=== PATIENT | female | born 1985 | race Caucasian/White ===

== ENCOUNTER 2017-07-15 11:24 | Inpatient (IN) ==
--- NOTE | 2017-07-15 12:14 | Emergency Department Note ---
Disposition Clinical Impression: Suicidal ideation, Evaluation by psychiatric service required Depression Qualifiers: Depression Type: major depressive disorder Major depression recurrence: recurrent Active/Remission status: currently active Major depression episode severity: moderate Qualified Code(s): F33.1 - Major depressive disorder, recurrent, moderate Bipolar disorder Qualifiers: Active/Remission status: remission status unspecified Qualified Code(s): F31.9 - Bipolar disorder, unspecified Disposition: Admitted As Inpatient Condition: Fair Time of Disposition: 13:22 General Adult HPI - General Chief complaint: ED Psychiatric Symptoms Stated complaint: SI Time Seen by Provider: 07/15/17 11:25 Source: patient Limitations: no limitations Nursing Notes Reviewed: Yes Vital Signs Reviewed: Yes - History of Present Illness HPI Narrative: Patient is a 32 year old female that presents to the emergency department for psychiatric issues. She was sent over from the [facility]. She states that she has been having a rough time. Patient states that she has a history of bipolar and has been taking her medications properly. Patient denies any suicidal or homicidal ideations. But does state that occasionally she feels like she would be better off if she was not here. She has been admitted to the hospital approximately 2 years ago for psychiatric issues. She saw Dr. Sen until he and then today was her first appointment in over a year. Patient denies taking any lithium, Depakote or ingesting any occasions to try and harm herself. Patient denies any alcohol use. Pain Scale: 8 - Related Data Home Medications Medication Instructions Recorded Confirmed Aripiprazole [Abilify] 15 mg PO DAILY 07/15/17 07/15/17 BuPROPion XL (24 HR) [Wellbutrin 150 mg PO 1300 07/15/17 07/15/17 XL] Bupropion HCl [Wellbutrin Xl] 300 mg PO QAM 07/15/17 07/15/17 FLUoxetine HCl [Prozac] 40 mg PO DAILY 07/15/17 07/15/17 Fluticasone/Salmeterol [Advair 1 puff IH BID 07/15/17 07/15/17 100-50 Diskus] Ipratropium/Albuterol Neb [Duoneb] 3 ml IH Q6H PRN 07/15/17 07/15/17 Meloxicam [Meloxicam] 7.5 mg PO DAILY 07/15/17 07/15/17 Montelukast [Singulair] 10 mg PO DAILY 07/15/17 07/15/17 OxyCODONE Immed Rel [Roxicodone 5 5 mg PO Q6H PRN 07/15/17 07/15/17 MG] Pantoprazole Sodium [Protonix] 40 mg PO BID 07/15/17 07/15/17 Pindolol 5 mg PO BID 07/15/17 07/15/17 Pregabalin [Lyrica] 75 mg PO TID 07/15/17 07/15/17 Topiramate [Topiramate] 50 mg PO BID 07/15/17 07/15/17 Trazodone HCl 300 mg PO HS 07/15/17 07/15/17 Allergies Allergy/AdvReac Type Severity Reaction Status Date / Time sumatriptan [From Imitrex] Allergy Anaphylaxis Verified 07/15/17 11:27 All systems ED: reviewed and negative except as stated. Cardiovascular: Denies: chest pain, palpitations Respiratory: Denies: dyspnea Gastrointestinal: Reports: abdominal pain. Denies: nausea, vomiting, diarrhea, hematochezia Genitourinary: Denies: dysuria Psychiatric: Denies: suicidal thoughts, homicidal thoughts Past Medical History - Past Medical History Medical history: Reports: asthma, GERD, other Psychiatric history: Reports: depression - Social History Smoking Status: Never smoker Smokeless Tobacco Status: No Alcohol use: Reports: none Drug use: Reports: none Physical Exam - General Limitations: no limitations General appearance: alert - Head Head exam: atraumatic, normocephalic - Neck Neck exam: Present: normal inspection, full ROM, trachea midline - Respiratory Respiratory exam: Present: normal lung sounds bilaterally. Absent: respiratory distress, wheezes - Cardiovascular Cardiovascular exam: Present: regular rate, normal rhythm, normal heart sounds, +S1, +S2 - Abdominal Exam Abdominal exam: Present: soft, tenderness, normal bowel sounds Abdominal tenderness: Present: RUQ, mild - Extremities Exam Extremities exam: Present: normal inspection, full ROM. Absent: tenderness - Neurological Exam Neurological exam: Present: alert, oriented X3 - Psychiatric Psychiatric exam: Present: other (Patient is reserved but very cooperative.). Absent: homicidal ideation, suicidal ideation - Skin Skin exam: Present: warm, dry, intact Course Vital Signs Temperature 98.7 F 07/15/17 11:27 Pulse Rate 96 07/15/17 11:27 Respiratory Rate 18 07/15/17 11:27 Blood Pressure 158/107 07/15/17 11:27 O2 Sat by Pulse Oximetry 98 07/15/17 11:27 Temperature 98.7 F 07/15/17 11:27 Pulse Rate 96 07/15/17 11:27 Respiratory Rate 18 07/15/17 11:27 Blood Pressure 158/107 07/15/17 11:27 O2 Sat by Pulse Oximetry 98 07/15/17 11:27 Oxygen Delivery Oxygen Delivery Room Air Medical Decision Making - MDM Narrative Medical decision making narrative: Patient was sent to the emergency department by the counseling center and had contacted [facility] and they were aware that she was coming. They have already accepted the patient. We have gotten a urine tox, ethanol level and test. Patient test was negative, ethanol is less than 10 and urine drug screen was positive for amphetamines. Patient has been medically cleared to be admitted to psychiatry. Due to the patient being here for psychiatric reasons and stating that sometimes she feels like she be better if she was not here. Patient has a sitter with her at this time. Dr. Alonzo has spoken with [facility] and [facility] has accepted the patient and will admit him to their services. - Lab Data Lab results reviewed: Yes I reviewed the patient's lab results. Lab Results 07/15/17 07/15/17 07/15/17 Range/Units 11:41 11:41 11:52 Urine Test Negative (Negative) Urine Opiates Screen Negative (Upfcfj=639) ng/mL Ur Barbiturates Screen Negative (Wgarmy=313) ng/mL Ur Phencyclidine Scrn Negative (Cutoff=25) ng/mL Ur Amphetamines Screen Positive H (Jmaihu=3047) ng/mL U Benzodiazepines Scrn Negative (Jlgflc=005) ng/mL Urine Cocaine Screen Negative (Cutoff= 300) ng/mL U Marijuana (THC) Screen Negative (Cutoff = 50) ng/mL Ethyl Alcohol < 10 (0-10) mg/dL
--- NOTE | 2017-07-15 12:14 | Emergency Department Note ---
Disposition Clinical Impression: Suicidal ideation Depression Qualifiers: Depression Type: major depressive disorder Major depression recurrence: recurrent Active/Remission status: currently active Major depression episode severity: moderate Qualified Code(s): F33.1 - Major depressive disorder, recurrent, moderate Disposition: Admitted As Inpatient Condition: Fair Referrals: NONE,PCP [Primary Care Provider] - Forms: ED Satisfaction Letter General Adult HPI - General Chief complaint: ED Psychiatric Symptoms Stated complaint: SI Time Seen by Provider: 07/15/17 11:25 Source: patient Limitations: no limitations Nursing Notes Reviewed: Yes Vital Signs Reviewed: Yes - History of Present Illness Pain Scale: 8 - Related Data Allergies Allergy/AdvReac Type Severity Reaction Status Date / Time sumatriptan [From Imitrex] Allergy Anaphylaxis Verified 07/15/17 11:27 Past Medical History - Past Medical History Medical history: Reports: asthma, GERD, other Psychiatric history: Reports: depression - Social History Smoking Status: Never smoker Smokeless Tobacco Status: No Alcohol use: Reports: none Drug use: Reports: none Physical Exam - General Limitations: no limitations General appearance: alert Course Vital Signs Temperature 98.7 F 07/15/17 11:27 Pulse Rate 96 07/15/17 11:27 Respiratory Rate 18 07/15/17 11:27 Blood Pressure 158/107 07/15/17 11:27 O2 Sat by Pulse Oximetry 98 07/15/17 11:27 Temperature 98.7 F 07/15/17 11:27 Pulse Rate 96 07/15/17 11:27 Respiratory Rate 18 07/15/17 11:27 Blood Pressure 158/107 07/15/17 11:27 O2 Sat by Pulse Oximetry 98 07/15/17 11:27 Oxygen Delivery Oxygen Delivery Room Air Medical Decision Making - MDM Narrative Medical decision making narrative: I examined this patient and my medical decision-making was reviewed with the Resident Physician. I agree with the documented findings, disposition and treatment plan as described except to the extent set forth below. Patient was seen and evaluated by Dr. Dexter and myself, I agree with his evaluation and management plan, I supervised the care of the patient's stay. Patient has a long history of psychiatric illness. She has not seen psychiatrist here for quite some time as her last psychiatrist was here but he is . She states she is not missed any of her medication she is feeling depressed but she is not really homicidal or suicidal. She was seen in the outpatient psychiatric clinic clinic. They had called over to [facility] spoke with [facility] and that expecting her data said medical clearance and then they will see her for most likely admission patient's in agreement with this plan and she denies any ingestions other than her therapeutic doses of her prescribed medications she denies any other problems she is not hearing voices she is cooperative here she is somewhat reserved. She understands the plan for evaluation and admission. 1230 hrs.: Patient's labs are back. I spoke with [facility] they are expecting her to be admitted so they said they just put a bed request and then they would admit her. They do not need to see her in the emergency department. Patient's agreement with this plan. Impression is depression with suicidal ideations. patient's agreement to this plan just waiting for a bed. - Lab Data Lab Results 07/15/17 07/15/17 07/15/17 Range/Units 11:41 11:41 11:52 Urine Test Negative (Negative) Urine Opiates Screen Negative (Woopqg=695) ng/mL Ur Barbiturates Screen Negative (Lwnyes=753) ng/mL Ur Phencyclidine Scrn Negative (Cutoff=25) ng/mL Ur Amphetamines Screen Positive H (Cwfaum=2545) ng/mL U Benzodiazepines Scrn Negative (Fxmeix=984) ng/mL Urine Cocaine Screen Negative (Cutoff= 300) ng/mL U Marijuana (THC) Screen Negative (Cutoff = 50) ng/mL Ethyl Alcohol < 10 (0-10) mg/dL
[2017-07-15 12:23] LABS: Amphetamine Screen,Urine Positive ng/mL (Cutoff=1000); Barbiturate Screen,Urine Negative ng/mL (Cutoff=200); Benzodiazepines Screen,Urine Negative ng/mL (Cutoff=200); Cannabinoid Screen,Urine Negative ng/mL (Cutoff = 50); Cocaine Screen,Urine Negative ng/mL (Cutoff= 300); Opiate Screen,Urine Negative ng/mL (Cutoff=300); Phencyclidine Screen,Urine Negative ng/mL (Cutoff=25)
[2017-07-15] MEDS ORDERED: hydrOXYzine pamoate 25 MG CAPSULE PO PRN (17:12)
[2017-07-15] MEDS ORDERED: Mag Hydrox/Al Hydrox/Simeth 30 ML UDC PO PRN (17:12)
[2017-07-15] MEDS ORDERED: *HR* LORazepam 2 MG/ML VIAL IM PRN (17:12)
[2017-07-15] MEDS ORDERED: *HR* LORazepam 1 MG TABLET PO PRN (17:12)
[2017-07-15] MEDS ORDERED: Haloperidol Lactate 5 MG/ML VIAL IM PRN (17:12)
[2017-07-15] MEDS ORDERED: MOM Conc 10 ML UD.LIQ PO PRN (21:00)
[2017-07-15] MEDS: Topiramate 25 MG TABLET PO SCH (21:15)
[2017-07-15] MEDS: traZODone 50 MG TABLET PO SCH (21:15)
[2017-07-16] MEDS: Acetaminophen 325 MG TABLET PO PRN ×2 (03:24→20:27)
[2017-07-16] MEDS ORDERED: FLUoxetine 20 MG CAPSULE PO SCH (09:00)
[2017-07-16] MEDS ORDERED: ARIPiprazole 10 MG TABLET PO SCH (09:00)
[2017-07-16] MEDS: Topiramate 25 MG TABLET PO SCH ×2 (09:22→20:26)
[2017-07-16] MEDS: BuPROPion XL (24 HR) 150 MG TABLET PO SCH (09:22)
--- NOTE | 2017-07-16 11:40 | Psychiatry History & Physical ---
Date of Encounter: 07/16/17 Time of Encounter: 11:40 History of Present Illness Patient Stated Chief Complaint: "I wish I was not here. It would have been easier for everyone around me" Medicare Admission Attestation: For traditional Medicare patients the provided hospital inpatient services are reasonable and necessary and in the case of services not specified as inpatient -only under 42 CFR 419.22 (n), that they are appropriately provided as inpatient services in accordance 42 CFR 412.3. For Critical Access Hospital the patient may reasonably be expected to be discharged or transferred to a hospital within 96 hours after admission to the Critical Access Hospital. Admitted From: Emergency Dept Plans for Post Hospital Care: Home History of Present Illness: Ms. Gamboa is a 32 year old female Was noted to have a history of bipolar disorder. Patient reported that she was doing fine up until a 7-8 months ago when she lost her outpatient psychiatrist Dr. Cuenca who . She reported that she was under his care for last 10 years or so and it was a devastating loss. She reported that 3 months ago her grandfather also which was devastating for her since she was very close to him. She reported that since last few months she has been noticing a relapse of depression with low mood and anhedonia hopelessness and helplessness feelings. She reported that she is becoming more isolative and does not want to be around anybody. She has stopped going to confucianist she has been off work because of her depression. She reported that she has been having thoughts of wanting to hurt herself but she has not acted on them. She is not sleeping well and reporting low energy levels. She has stopped taking care for herself. Since patient was having worsening of her depression was endorsing hopeless and helpless feelings and was unable to provide care for herself and was posing a threat to herself and it was decided to hospitalize her on a psychiatric unit for stabilization and for safety concerns. Past Med Surg Social Fam HX - Past Medical History Medical history: asthma, GERD, other - Past Psychiatric History Psychiatric history: Reports: bipolar, prior suicide attempt, previous psychiatric hospitalization Past psychiatric history details: Patient has extensive history of mental illness. She is diagnosed with bipolar disorder type II. She has been receiving treatment from [facility] for more than 10 years. She has multiple prior psychiatric hospitalizations. Her last hospitalization was in 2014. Family psychiatric history: Unknown Family History of Suicide: Unknown - Social History Smoking Status: Never smoker Smokeless Tobacco Status: No Alcohol use: none Drug use: none Occupational status: employed Current living situation: Home, With Family Activity Level: Independent ambulation Recent Out of Country Travel Within the Last 8 Weeks: No Exposure or Possible Exposure to Illness During Travel: No Additional social history: Patient is for 15 years. She has 3 children ages 13 and 9 and 7. 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 She resides with her and children. She denies any legal issues. Medications & Allergies Aripiprazole [Abilify] 15 mg PO DAILY 07/15/17 [History] BuPROPion XL (24 HR) [Wellbutrin XL] 150 mg PO 1300 07/15/17 [History] Bupropion HCl [Wellbutrin Xl] 300 mg PO QAM 07/15/17 [History] FLUoxetine HCl [Prozac] 40 mg PO DAILY 07/15/17 [History] Fluticasone/Salmeterol [Advair 100-50 Diskus] 1 puff IH BID 07/15/17 [History] Ipratropium/Albuterol Neb [Duoneb] 3 ml IH Q6H PRN 07/15/17 [History] Meloxicam [Meloxicam] 7.5 mg PO DAILY 07/15/17 [History] Montelukast [Singulair] 10 mg PO DAILY 07/15/17 [History] OxyCODONE Immed Rel [Roxicodone 5 MG] 5 mg PO Q6H PRN 07/15/17 [History] Pantoprazole Sodium [Protonix] 40 mg PO BID 07/15/17 [History] Pindolol 5 mg PO BID 07/15/17 [History] Pregabalin [Lyrica] 75 mg PO TID 07/15/17 [History] Topiramate [Topiramate] 50 mg PO BID 07/15/17 [History] Trazodone HCl 300 mg PO HS 07/15/17 [History] 3 Allergy/AdvReac Type Severity Reaction Status Date / Time sumatriptan [From Imitrex] Allergy Anaphylaxis Verified 07/15/17 11:27 Review of Systems Psychiatric: Reports: depression, abnormal sleep pattern, anhedonia, difficulty concentrating, hopelessness Mental Status Exam Patient orientation: Yes Person, Yes Time, Yes Place Level of alertness: Alert Patient appearance: Unkempt, Disheveled Behavior: anxious, tearful Psychomotor activity: Slowed Eye contact: Maintains Eye Contact Mood description: Depressed, Anxious Affect description: constricted, tearful, dysphoric Speech pattern: Slowed Speech volume: Soft/Quiet Thought process: Linear, Goal Oriented Thought content: No Suicidal ideation, No Homicidal ideation, No Overt delusions Perceptual disturbances: No Auditory hallucinations, No Visual hallucinations Attention span: Capable of Focused Attention Memory description: Grossly Intact Patient reliability: Reliable Historian Intelligence estimate: Average Judgment: Fair Insight: Partial Additional Findings: Although patient is not denying any active suicidal ideation but is endorsing hopelessness helplessness feelings and reporting a strong passive wish. Unable to contract for safety off the unit. Exam - HEENT Head exam IM: Present: normal inspection Eye exam IM: Present: normal appearance ENT exam IM: Present: normal exam - Neurological Neurological exam IM: Present: alert, CN II-XII intact, normal gait, oriented X3 , reflexes normal, no focal deficits, strengths equal and symetr throughout. Absent: motor sensory deficit - Respiratory Respiratory exam IM: Absent: respiratory distress - GI/Abdominal GI/Abdominal exam IM: Present: normal bowel sounds, soft - Extremities Extremities exam IM: Present: normal inspection - Skin Skin exam IM: Present: normal color Results - Vital Signs Vital signs: Temp Pulse Resp BP Pulse Ox 97.8 F 96 16 150/97 98 07/16/17 10:10 07/16/17 10:10 07/16/17 10:10 07/16/17 10:10 07/15/17 11:27 - Labs Labs: Laboratory Last Values Urine Test Negative (Negative) 07/15/17 11:41 Urine Opiates Screen Negative ng/mL (Secrtr=275) 07/15/17 11:41 Ur Barbiturates Screen Negative ng/mL (Onepmz=555) 07/15/17 11:41 Ur Phencyclidine Scrn Negative ng/mL (Cutoff=25) 07/15/17 11:41 Ur Amphetamines Screen Positive ng/mL (Zakwcr=0460) H 07/15/17 11:41 U Benzodiazepines Scrn Negative ng/mL (Ixexrb=994) 07/15/17 11:41 Urine Cocaine Screen Negative ng/mL (Cutoff= 300) 07/15/17 11:41 U Marijuana (THC) Screen Negative ng/mL (Cutoff = 50) 07/15/17 11:41 Ethyl Alcohol < 10 mg/dL (0-10) 07/15/17 11:52 Assessment and Plan (1) Bipolar 2 disorder, major depressive episode Current visit: Yes Status: Acute Plan: Admit inpatient for safety and stabilization, Close observation, Suicide Precautions per unit protocol, Encourage participation in unit milieu, Group Therapy, Monitor sleep, Monitor appetite Additional Plan: After reviewing the symptom diagnosis treatment plan and explaining the risks benefits side effects alternatives to treatment and consequences of no treatment and getting an informed consent from the patient it was decided to adjust patient's medication as follows. Patient's Abilify will be increased from 15 mg daily to 20 mg daily for her mood stabilization. We will discontinue patient's Prozac and will start the patient on Cymbalta 60 mg daily for her depression. We will continue patient's Wellbutrin SR 300 mg daily for depression. Because of patient's insomnia we will initiate patient on Restoril 30 mg at bedtime and will continue patient's trazodone 300 mg at bedtime when necessary as patient reported that both these medications are beneficial for her insomnia in the past. Risks, benefits, side effects, alternatives discussed w/pt: No Patient agreeable to treatment: No Plans for Post Hospital Care: Home Estimated Length of Stay (Days): 4
[2017-07-16] MEDS: traZODone 50 MG TABLET PO SCH (20:23)
[2017-07-16] MEDS: Temazepam 15 MG CAPSULE PO SCH (20:23)
[2017-07-17] MEDS: BuPROPion XL (24 HR) 150 MG TABLET PO SCH (08:35)
[2017-07-17] MEDS: Topiramate 25 MG TABLET PO SCH ×2 (08:36→20:54)
[2017-07-17] MEDS: ARIPiprazole 10 MG TABLET PO SCH (08:36)
--- NOTE | 2017-07-17 11:29 | Psychiatry Progress Note ---
Date of Encounter: 07/17/17 Time of Encounter: 11:03 Subjective Interval history: Patient seen and interviewed. Appears flat and dysphoric. Endorsing hopelessness and helplessness feelings. Isolated and withdrawn. Still complaining of fragmented sleep. Encouraged to attend groups participate in activities and coping skills and work on a safety plan. Tolerating medication changes well. Family visited yesterday and it went fairly well. Review of Systems Psychiatric: Reports: depression, abnormal sleep pattern, anhedonia, difficulty concentrating, hopelessness Objective: Exam Patient orientation: Yes Person, Yes Time, Yes Place Level of alertness: Alert Patient appearance: Appropriate, Well Groomed Behavior: anxious, tearful Psychomotor activity: Normal Eye contact: Maintains Eye Contact Mood description: Depressed, Anxious Affect description: blunted, dysphoric Speech pattern: Normal rate, Normal rhythm, Normal tone Speech volume: Soft/Quiet Thought process: Linear, Goal Oriented Thought content: No Suicidal ideation, No Homicidal ideation, No Overt delusions Perceptual disturbances: No Auditory hallucinations, No Visual hallucinations Judgment: Fair Insight: Partial Additional Findings: Although patient is denying any active suicidal ideation she is still endorsing hopeless and helpless feelings and unable to verbalize a safety plan and is unable to contract for safety off the unit. Results - Vital Signs Vital Signs: Temp Pulse Resp BP Pulse Ox 99.0 F 99 16 122/89 98 07/17/17 08:31 07/17/17 08:31 07/17/17 08:31 07/17/17 08:31 07/15/17 11:27 Assessment and Plan (1) Bipolar 2 disorder, major depressive episode Current visit: Yes Status: Acute Plan: Continue hospitalization, Close observation, Suicide Precautions per unit protocol, Encourage participation in unit milieu, Group Therapy, Monitor sleep, Monitor appetite Additional Plan: Continue with the current regime of medications. Risks, benefits, side effects, alternatives discussed w/pt: No Patient agreeable to treatment: No Consult Discharge Plan - Plan Referrals: [facility] [Outside] - 07/27/17 11:00 am (The above appointment is with Isabella Lowry, for mental health counseling services. You will also see Mary Chen, for outpatient psychiatric assessment and medication management services on 08/30/2017 at 11:00am. Please arrive 10 minutes early to all appointments to complete the check-in process. Please bring your insurance card (or HCAP award letter) and photo ID. If you are unable to keep this appointment, 24 hour business notice of cancellation is expected. The above appointment(s) reflects first availability. You may contact the office regularly to check for cancellations that may allow you to be seen sooner. )
[2017-07-17] MEDS: Pregabalin 75 MG CAPSULE PO SCH ×2 (15:05→20:55)
[2017-07-17] MEDS: traZODone 50 MG TABLET PO SCH (20:54)
[2017-07-17] MEDS: Temazepam 15 MG CAPSULE PO SCH (20:55)
[2017-07-18] MEDS: ARIPiprazole 10 MG TABLET PO SCH (09:01)
[2017-07-18] MEDS: BuPROPion XL (24 HR) 150 MG TABLET PO SCH (09:02)
[2017-07-18] MEDS: Pregabalin 75 MG CAPSULE PO SCH ×3 (09:02→20:13)
[2017-07-18] MEDS: Topiramate 25 MG TABLET PO SCH ×2 (09:06→20:12)
--- NOTE | 2017-07-18 10:17 | Psychiatry Progress Note ---
Date of Encounter: 07/18/17 Time of Encounter: 09:30 Subjective Interval history: Shelby is seen today for follow-up of her depression and anxiety symptoms. She states that her symptoms have been worsening over the past few months and she had been unable to get in to see her psychiatrist. She recently saw a nurse practitioner and was then sent to the hospital for further stabilization. She admits to continued low mood and anxiety symptoms. Intermittent vague SI without plan. Patient states that she is still not sleeping well which is her biggest stressor. In the past she has taken Remeron in addition to Restoril and trazodone to help with sleep. Despite increasing doses of Seroquel patient has not been sleeping well. She is future oriented and would like to go home soon but feels unsafe to do so while she is not sleeping. "My sleep is often I just do not feel well." Review of Systems Constitutional: Denies: fever, chills, weakness, weight change Eyes: Denies: eye pain, vision change Ears, Nose, Throat: Denies: ear pain, throat pain, dental pain, hearing loss, congestion Cardiovascular: Denies: chest pain, palpitations, dyspnea on exertion Respiratory: Denies: cough, dyspnea, wheezes Gastrointestinal: Denies: abdominal pain, nausea, vomiting, diarrhea, constipation Musculoskeletal: Denies: joint swelling, joint pain Neurological: Denies: headache, weakness, numbness, memory loss Psychiatric: Reports: depression, anxiety, abnormal sleep pattern, anhedonia, difficulty concentrating, hopelessness Objective: Exam Patient orientation: Yes Person, Yes Time, Yes Place Level of alertness: Alert Patient appearance: Appropriate, Well Groomed Behavior: calm, cooperative Psychomotor activity: Normal Eye contact: Fleeting Contact Mood description: Depressed, Anxious Affect description: congruent with mood, dysphoric Speech pattern: Normal rate, Normal rhythm, Normal tone Speech volume: Normal Thought process: Intact, Logical Thought content: Yes Suicidal ideation, No Homicidal ideation Perceptual disturbances: No Auditory hallucinations, No Visual hallucinations Judgment: Fair Insight: Minimal Results - Vital Signs Vital Signs: Temp Pulse Resp BP Pulse Ox 99.1 F 94 16 132/93 98 07/17/17 20:00 07/17/17 20:00 07/17/17 20:00 07/17/17 20:00 07/15/17 11:27 Assessment and Plan (1) Bipolar 2 disorder, major depressive episode Current visit: Yes Status: Acute Plan: Continue hospitalization, Close observation, Suicide Precautions per unit protocol, Encourage participation in unit milieu, Group Therapy, Monitor sleep, Monitor appetite Additional Plan: We will DC Seroquel and restart Remeron for sleep. Monitor for side effects and monitor for improvement. Continue to encourage positive coping strategies and group attendance. Consider discharge tomorrow if patient improves. Risks, benefits, side effects, alternatives discussed w/pt: No Patient agreeable to treatment: No Consult Discharge Plan - Plan Referrals: [facility] [Outside] - 07/27/17 11:00 am (The above appointment is with Isabella Lowry, for mental health counseling services. You will also see Mary Chen, for outpatient psychiatric assessment and medication management services on 08/30/2017 at 11:00am. Please arrive 10 minutes early to all appointments to complete the check-in process. Please bring your insurance card (or [facility] award letter) and photo ID. If you are unable to keep this appointment, 24 hour business notice of cancellation is expected. The above appointment(s) reflects first availability. You may contact the office regularly to check for cancellations that may allow you to be seen sooner. )
[2017-07-18] MEDS: Acetaminophen 325 MG TABLET PO PRN (13:28)
[2017-07-18] MEDS: traZODone 50 MG TABLET PO SCH (20:12)
[2017-07-18] MEDS: Temazepam 15 MG CAPSULE PO SCH (20:13)
[2017-07-18] MEDS ORDERED: Mirtazapine 15 MG TABLET PO SCH (21:00)
[2017-07-19] MEDS ORDERED: *HR* LORazepam 1 MG TABLET PO ONE (00:56)
[2017-07-19] MEDS: BuPROPion XL (24 HR) 150 MG TABLET PO SCH (08:29)
[2017-07-19] MEDS: Pregabalin 75 MG CAPSULE PO SCH (08:30)
[2017-07-19] MEDS: Topiramate 25 MG TABLET PO SCH (08:30)
[2017-07-19] MEDS: ARIPiprazole 10 MG TABLET PO SCH (08:30)
--- NOTE | 2017-07-19 09:48 | Discharge Summary ---
Date of Encounter: 07/19/17 Time of Encounter: 09:00 Diagnosis - Discharge Diagnosis (1) Bipolar 2 disorder, major depressive episode Priority: Primary Status: Acute Medications - Discharge Medications Prescriptions: ARIPiprazole [Abilify] 20 mg PO DAILY #60 tab DULoxetine [Cymbalta] 60 mg PO DAILY #60 Mirtazapine [Remeron] 30 mg PO HS #60 tab Temazepam [Restoril] 30 mg PO HS #60 cap Trazodone HCl 300 mg PO HS #30 Bupropion HCl [Wellbutrin Xl] 300 mg PO QAM 07/15/17 [History] Fluticasone/Salmeterol [Advair 100-50 Diskus] 1 puff IH BID 07/15/17 [History] Ipratropium/Albuterol Neb [Duoneb] 3 ml IH Q6H PRN 07/15/17 [History] Meloxicam 7.5 mg PO DAILY 07/15/17 [History] Montelukast [Singulair] 10 mg PO DAILY 07/15/17 [History] Pantoprazole Sodium [Protonix] 40 mg PO BID 07/15/17 [History] Pindolol 5 mg PO BID 07/15/17 [History] Pregabalin [Lyrica] 75 mg PO TID 07/15/17 [History] Topiramate 50 mg PO BID 07/15/17 [History] ARIPiprazole [Abilify] 20 mg PO DAILY #60 tab 07/19/17 [Rx] BuPROPion XL (24 HR) [Wellbutrin Xl] 300 mg PO DAILY 07/19/17 [Rx] DULoxetine [Cymbalta] 60 mg PO DAILY #60 07/19/17 [Rx] Mirtazapine [Remeron] 30 mg PO HS #60 tab 07/19/17 [Rx] Temazepam [Restoril] 30 mg PO HS #60 cap 07/19/17 [Rx] Trazodone HCl 300 mg PO HS #30 07/19/17 [Rx] 3 Allergy/AdvReac Type Severity Reaction Status Date / Time sumatriptan [From Imitrex] Allergy Anaphylaxis Verified 07/15/17 11:27 Provider Date of admission: 07/15/17 13:37 Primary care physician: PCP NONE Discharging clinician: Deneen Jarvis Assessment and Plan - Patient/Caregiver Discharge Instructions Activity: resume usual activities as tolerated Diet: regular diet - Follow up Plan Follow up with: [facility] [Outside] - 07/27/17 11:00 am (The above appointment is with Isabella Lowry, for mental health counseling services. You will also see Mary Chen, for outpatient psychiatric assessment and medication management services on 08/30/2017 at 11:00am. Please arrive 10 minutes early to all appointments to complete the check-in process. Please bring your insurance card (or [facility] award letter) and photo ID. If you are unable to keep this appointment, 24 hour business notice of cancellation is expected. The above appointment(s) reflects first availability. You may contact the office regularly to check for cancellations that may allow you to be seen sooner. ) Functional capacity at discharge: independent ambulation Overall status at discharge: Stable Disposition: Home, Self-Care Hospital Course Hospital course: Ms. Gamboa is a 32 year old female with a history of bipolar disorder and anxiety and sleep issues who presented to the hospital with increasing depression sent from her outpatient psychiatrist's office. Patient was admitted to for psychiatric stabilization. She was incorporated into the therapeutic milieu with group and individual as well as recreational therapy. She was also offered psychoeducational materials and supportive therapy. She is placed on suicide precautions and close observation per unit protocol. Patient reports that her mood had been declining over the past few months. She was unable to get in to see a new psychiatrist after her previous psychiatrist left the practice suddenly. Patient states that she started to have suicidal ideation and have difficulty socializing with others. During the hospital stay patient's medications were titrated. Wellbutrin was decreased at 300 mg daily. Abilify was increased to 20 mg by mouth daily. Patient was given Remeron in addition to trazodone and Restoril for sleep. She still struggles little bit with sleep but stated that her mood improved significantly from the time of admission. Patient states that she is more hopeful about her future and would like to start interacting with friends and family and going out doing things. Patient believes that this will help her sleep better. At the time of discharge she denied suicidal or homicidal ideation intent or plan. She is willing to follow up as an outpatient and continue her mental health treatment. She is willing to return to the hospital in emergency. She is discharged in stable condition. - Time Spent with Patient Total time spent providing and/or coordinating discharge services: Less than 30 minutes Quality - Multiple Antipsychotics Patient discharged on 2 or more antipsychotic medications: No Procedures - Procedures Procedures: Medication Management, Crisis Stabilization, Supportive Therapy, Group Therapy, Psychoeducational Therapy Mental Status Exam - Mental Status Exam Patient orientation: Yes Person, Yes Time, Yes Place Level of alertness: Alert Patient appearance: Appropriate, Well Groomed Behavior: calm, cooperative Psychomotor activity: Normal Eye contact: Maintains Eye Contact Mood description: Euthymic/stable Affect description: congruent with mood, full range Speech pattern: Normal rate, Normal rhythm, Normal tone Speech Volume: Normal Thought process: Linear, Goal Oriented Thought Content: No Suicidal ideation, No Homicidal ideation, No Overt delusions Perceptual Disturbances: No Auditory hallucinations, No Visual hallucinations Judgment: Fair Insight: Partial
[2017-07-19 10:18] VITALS: BP 154/105
== END 2017-07-19 11:00 | disposition home or self-care (01) | DRG 885 ==
LOC: EMEROO 11:24 → SUATTDRO 13:37 → 1ANU 13:37
PROVIDERS: ADMIT Psychiatry & Neurology Psychiatry; ATTEND Psychiatry & Neurology Psychiatry

== ENCOUNTER 2019-07-31 10:51 | Inpatient (IN) ==
--- NOTE | 2019-07-31 11:20 | Emergency Department Note ---
Disposition Clinical Impression: Suicidal ideation, Anxiety Depression Qualifiers: Depression Type: unspecified Qualified Code(s): F32.9 - Major depressive disorder, single episode, unspecified Disposition: Admitted As Inpatient Condition: Fair Forms: ED Satisfaction Letter Time of Disposition: 12:00 Psych HPI - General Chief Complaint: ED Psychiatric Symptoms Stated Complaint: Psych Time Seen by Provider: 07/31/19 10:57 Source: patient, EMS Mode of arrival: EMS Limitations: no limitations Nursing Notes Reviewed: Yes Vital Signs Reviewed: Yes - History of Present Illness HPI Narrative: Patient sent from the counseling center due to depression, anxiety, suicidal thoughts without a plan. She has a history of similar symptoms. 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) Context: significant life stressor Associated Psychiatric Symptoms: depression, suicidal ideation, anxiety Associated symptoms: Reports: other (Postsurgical abdominal pain) Traumatic symptoms: denies traumatic injury Self harm or harm to others: admits thoughts of self harm - Related Data Home Medications Medication Instructions Recorded Confirmed Bupropion HCl [Wellbutrin Xl] 300 mg PO QAM 07/15/17 07/31/17 Fluticasone/Salmeterol [Advair 1 puff IH BID 07/15/17 07/31/17 100-50 Diskus] Ipratropium/Albuterol Neb [Duoneb] 3 ml IH Q6H PRN 07/15/17 07/31/17 Meloxicam 7.5 mg PO DAILY 07/15/17 07/15/17 Montelukast [Singulair] 10 mg PO HS 07/15/17 07/31/17 Pantoprazole Sodium [Protonix] 40 mg PO BID 07/15/17 07/31/17 Pindolol 5 mg PO BID 07/15/17 07/31/17 Pregabalin [Lyrica] 75 mg PO TID 07/15/17 07/31/17 Topiramate 50 mg PO BID 07/15/17 07/31/17 ARIPiprazole [Abilify] 20 mg PO HS 07/31/17 07/31/17 Previous Rx's Medication Instructions Recorded BuPROPion XL (24 HR) [Wellbutrin 300 mg PO DAILY 07/19/17 Xl] DULoxetine [Cymbalta] 60 mg PO DAILY #60 07/19/17 Mirtazapine [Remeron] 30 mg PO HS #60 tab 07/19/17 Temazepam [Restoril] 30 mg PO HS #60 cap 07/19/17 Trazodone HCl 300 mg PO HS #30 07/19/17 Ondansetron ODT [Zofran ODT] 4 mg SL Q4HR PRN #10 tab.rapdis 10/15/17 Meloxicam [Mobic] 15 mg PO DAILY 14 Days #14 tab 05/30/19 Ondansetron ODT [Zofran ODT] 4 mg SL Q6HR 14 Days #14 tab.rapdis 05/30/19 Allergies Allergy/AdvReac Type Severity Reaction Status Date / Time eletriptan [From Relpax] Allergy Anaphylaxis Verified 07/31/19 10:58 sumatriptan [From Imitrex] Allergy Anaphylaxis Verified 07/15/17 11:27 tuberculin,PPD,multi-puncture AdvReac See Verified 07/31/19 10:58 Comments All systems ED: reviewed and negative except as stated. Constitutional: Reports: as per HPI Eyes: Reports: as per HPI ENT ED: Reports: as per HPI Cardiovascular: Reports: as per HPI Respiratory: Reports: as per HPI Gastrointestinal: Reports: abdominal pain (Postsurgical) Genitourinary: Reports: as per HPI Musculoskeletal: Reports: as per HPI Integumentary: Reports: as per HPI Neurological: Reports: as per HPI Psychiatric: Reports: anxiety, depression, suicidal thoughts Endocrine: Reports: as per HPI Hematological/Lymphatic: Reports: as per HPI Allergic/Immunologic: Reports: as per HPI Past Medical History - Past Medical History Source: patient Medical history: Reports: asthma, GERD, migraine, other Psychiatric history: Reports: anxiety, bipolar, depression, panic disorder, prio r suicide attempt, previous psychiatric hospitalization - Social History Smoking Status: Never smoker Smokeless Tobacco Status: No Alcohol use: Reports: none Drug use: Reports: none Physical Exam - General Limitations: no limitations General appearance: alert, in no apparent distress - Head Head exam: atraumatic - Eye Eye exam: Present: normal appearance - ENT ENT exam: normal exam - Neck Neck exam: Present: normal inspection - Chest Chest inspection: Present: normal inspection, symmetric chest wall rise - Respiratory Respiratory exam: Present: normal lung sounds bilaterally - Cardiovascular Cardiovascular exam: Present: regular rate, normal rhythm - Abdominal Exam Abdominal exam: Present: other (Healing Pfannenstiel incision) - Rectal Exam Rectal exam: Present: deferred - Extremities Exam Extremities exam: Present: normal inspection - Neurological Exam Neurological exam: Present: alert, oriented X3, CN II-XII intact - Psychiatric Psychiatric exam: Present: depressed, flat affect - Skin Skin exam: Present: warm, dry, intact Course Course Narrative: I will attempt to clear the patient medically for mental health evaluation Vital Signs Temperature 97.9 F 07/31/19 10:54 Pulse Rate 65 07/31/19 10:54 Respiratory Rate 16 07/31/19 10:54 Blood Pressure 122/84 07/31/19 10:54 O2 Sat by Pulse Oximetry 94 07/31/19 10:54 Temperature 97.9 F 07/31/19 10:54 Pulse Rate 65 07/31/19 10:54 Respiratory Rate 16 07/31/19 10:54 Blood Pressure 122/84 07/31/19 10:54 O2 Sat by Pulse Oximetry 94 07/31/19 10:54 Oxygen Delivery Oxygen Delivery Room Air Psych - Lab Data Result diagrams: 07/31/19 11:06 07/31/19 11:06 Lab Results 07/31/19 07/31/19 07/31/19 Range/Units 11:01 11:01 11:06 WBC 7.8 (4.3-11.1) K/mcL RBC 4.76 (3.82-4.97) M/mcL Hgb 14.2 (11.5-15.4) g/dL Hct 42.9 (35.3-44.9) % MCV 90.1 (83.0-100.0) fL MCH 29.8 (28.0-33.3) pg MCHC 33.1 (31.6-35.5) g/dL RDW 12.7 (11.5-14.5) % Plt Count 363 (140-400) K/mcL MPV 10.1 (9.4-12.4) fL Immature Gran % 0.4 (0-4) % Seg Neutrophils % 54.3 % Lymphocytes % 36.0 % Monocytes % 8.0 % Eosinophils % 0.9 % Basophils % 0.4 % Neutrophils # 4.3 (1.6-8.9) K/mcL Lymphocytes # 2.8 (0.6-4.6) K/mcL Monocytes # 0.6 (0.0-1.3) K/mcL Eosinophils # 0.1 (0.0-0.6) K/mcL Basophils # 0.0 (0.0-0.2) K/mcL Sodium (136-145) mEq/L Potassium (3.5-5.1) mEq/L Chloride (98-107) mEq/L Carbon Dioxide (23-29) mEq/L BUN (6-20) mg/dL Creatinine (0.60-1.20) mg/dL Est GFR ( Amer) (> 60) Est GFR (Non-Af Amer) (> 60) BUN/Creatinine Ratio (6-26) Glucose (70-105) mg/dL Calculated Osmolality (280-300) Calcium (8.6-10.3) mg/dL Total Bilirubin (0.3-1.0) mg/dL Direct Bilirubin (0.0-0.2) mg/dL Indirect Bilirubin (0.0-1.2) mg/dL AST (13-39) Units/L ALT (7-52) Units/L Alkaline Phosphatase (34-104) Units/L Serum Total Protein (6.4-8.9) g/dL Albumin (3.5-5.7) g/dL Globulin (2.4-3.5) g/dL Albumin/Globulin Ratio (1.1-2.2) Urine Test Negative (Negative) Salicylates (15.0-30.0) mg/dL Urine Opiates Screen Negative (Xjxehr=398) ng/mL Ur Buprenorphine Scrn Negative (Cutoff=5) ng/mL Acetaminophen (10-20) mcg/mL Ur Barbiturates Screen Negative (Lgxnui=080) ng/mL Ur Phencyclidine Scrn Negative (Cutoff=25) ng/mL Ur Amphetamines Screen Negative (Wfskem=9852) ng/mL U Benzodiazepines Scrn Positive H (Mfqhnb=645) ng/mL Urine Cocaine Screen Negative (Cutoff= 300) ng/mL U Marijuana (THC) Screen Negative (Cutoff = 50) ng/mL Ur Drug Screen Interp See Below Ethyl Alcohol (Less than 10) mg/dL 07/31/19 Range/Units 11:06 WBC (4.3-11.1) K/mcL RBC (3.82-4.97) M/mcL Hgb (11.5-15.4) g/dL Hct (35.3-44.9) % MCV (83.0-100.0) fL MCH (28.0-33.3) pg MCHC (31.6-35.5) g/dL RDW (11.5-14.5) % Plt Count (140-400) K/mcL MPV (9.4-12.4) fL Immature Gran % (0-4) % Seg Neutrophils % % Lymphocytes % % Monocytes % % Eosinophils % % Basophils % % Neutrophils # (1.6-8.9) K/mcL Lymphocytes # (0.6-4.6) K/mcL Monocytes # (0.0-1.3) K/mcL Eosinophils # (0.0-0.6) K/mcL Basophils # (0.0-0.2) K/mcL Sodium 140 (136-145) mEq/L Potassium 3.9 (3.5-5.1) mEq/L Chloride 105 (98-107) mEq/L Carbon Dioxide 26 (23-29) mEq/L BUN 20 (6-20) mg/dL Creatinine 0.68 (0.60-1.20) mg/dL Est GFR ( Amer) > 60 (> 60) Est GFR (Non-Af Amer) > 60 (> 60) BUN/Creatinine Ratio 29 H (6-26) Glucose 92 (70-105) mg/dL Calculated Osmolality 292 (280-300) Calcium 9.6 (8.6-10.3) mg/dL Total Bilirubin 0.4 (0.3-1.0) mg/dL Direct Bilirubin 0.0 (0.0-0.2) mg/dL Indirect Bilirubin 0.4 (0.0-1.2) mg/dL AST 17 (13-39) Units/L ALT 16 (7-52) Units/L Alkaline Phosphatase 64 (34-104) Units/L Serum Total Protein 7.9 (6.4-8.9) g/dL Albumin 4.5 (3.5-5.7) g/dL Globulin 3.4 (2.4-3.5) g/dL Albumin/Globulin Ratio 1.3 (1.1-2.2) Urine Test (Negative) Salicylates < 2.5 L (15.0-30.0) mg/dL Urine Opiates Screen (Zyteph=708) ng/mL Ur Buprenorphine Scrn (Cutoff=5) ng/mL Acetaminophen < 10 L (10-20) mcg/mL Ur Barbiturates Screen (Fyoqgu=637) ng/mL Ur Phencyclidine Scrn (Cutoff=25) ng/mL Ur Amphetamines Screen (Ixtvub=0835) ng/mL U Benzodiazepines Scrn (Rcrodq=585) ng/mL Urine Cocaine Screen (Cutoff= 300) ng/mL U Marijuana (THC) Screen (Cutoff = 50) ng/mL Ur Drug Screen Interp Ethyl Alcohol < 10 (Less than 10) mg/dL Psychiatric Medical Clearance - Medical Clearance Checklist Medical History: No Social History Section defined Current Vitals: Last Vital Signs Temp 97.9 F 07/31/19 10:54 Pulse 65 07/31/19 10:54 Resp 16 07/31/19 10:54 BP 122/84 07/31/19 10:54 Pulse Ox 94 07/31/19 10:54 Psychiatric Lab Panel: Drug Levels and Toxicity 07/31/19 07/31/19 11:01 11:06 Urine Opiates Screen Negative Acetaminophen < 10 L Ur Barbiturates Screen Negative Ur Phencyclidine Scrn Negative Ur Amphetamines Screen Negative U Benzodiazepines Scrn Positive H Urine Cocaine Screen Negative U Marijuana (THC) Screen Negative Ethyl Alcohol < 10 Abnormal Labs: Abnormal lab results BUN/Creatinine Ratio 29 (6-26) H 07/31/19 11:06 Salicylates < 2.5 mg/dL (15.0-30.0) L 07/31/19 11:06 Acetaminophen < 10 mcg/mL (10-20) L 07/31/19 11:06 U Benzodiazepines Scrn Positive ng/mL (Gqwvyo=674) H 07/31/19 11:01 Statement of Medical Clearance: I have evaluated the patient, reviewed diagnostic information, and certify that the patient's medical condition is sufficiently stable that transfer to the psychiatric unit does not pose a significant risk of deterioration.
[2019-07-31 11:36] LABS: Basophils % 0.4 %; Eosinophils # 0.1 K/mcL (0.0-0.6); Eosinophils % 0.9 %; Hematocrit 42.9 % (35.3-44.9); Hemoglobin 14.2 g/dL (11.5-15.4); Immature Granulocytes % 0.4 % (0-4); Lymphocytes # 2.8 K/mcL (0.6-4.6); Mean Corpuscular HGB Conc 33.1 g/dL (31.6-35.5); Mean Corpuscular Hemoglobin 29.8 pg (28.0-33.3); Mean Corpuscular Volume 90.1 fL (83.0-100.0); Mean Platelet Volume 10.1 fL (9.4-12.4); Monocytes # 0.6 K/mcL (0.0-1.3); Neutrophils # 4.3 K/mcL (1.6-8.9); Platelet Count 363 K/mcL (140-400); Red Blood Count 4.76 M/mcL (3.82-4.97); Red Cell Distribution Width 12.7 % (11.5-14.5); Segmented Neutrophils % 54.3 %; White Blood Count 7.8 K/mcL (4.3-11.1)
[2019-07-31] MEDS ORDERED: Ibuprofen 800 MG TABLET PO ONE (11:42)
[2019-07-31 11:43] LABS: Amphetamine Screen,Urine Negative ng/mL (Cutoff=1000); Barbiturate Screen,Urine Negative ng/mL (Cutoff=200); Benzodiazepines Screen,Urine Positive ng/mL (Cutoff=200); Cannabinoid Screen,Urine Negative ng/mL (Cutoff = 50); Cocaine Screen,Urine Negative ng/mL (Cutoff= 300); Opiate Screen,Urine Negative ng/mL (Cutoff=300); Phencyclidine Screen,Urine Negative ng/mL (Cutoff=25)
[2019-07-31 11:55] LABS: Acetaminophen < 10 mcg/mL (10-20); Alanine Aminotransferase 16 Units/L (7-52); Albumin 4.5 g/dL (3.5-5.7); Albumin/Globulin Ratio 1.3 (1.1-2.2); Alkaline Phosphatase 64 Units/L (34-104); Aspartate Amino Transferase 17 Units/L (13-39); BUN/Creatinine Ratio 29 (6-26); Bilirubin,Indirect 0.4 mg/dL (0.0-1.2); Bilirubin,Total 0.4 mg/dL (0.3-1.0); Blood Urea Nitrogen 20 mg/dL (6-20); Calcium 9.6 mg/dL (8.6-10.3); Carbon Dioxide 26 mEq/L (23-29); Chloride 105 mEq/L (98-107); Ethanol < 10 mg/dL (Less than 10); Globulin 3.4 g/dL (2.4-3.5); Glucose 92 mg/dL (70-105); Osmolality,Calculated 292 (280-300); Potassium 3.9 mEq/L (3.5-5.1); Salicylate < 2.5 mg/dL (15.0-30.0); Sodium 140 mEq/L (136-145); Total Protein 7.9 g/dL (6.4-8.9); eGFR For African Americans > 60 (> 60); eGFR For Non-African Americans > 60 (> 60)
[2019-07-31] MEDS ORDERED: Mag Hydrox/Al Hydrox/Simeth 30 ML UDC PO PRN (12:30)
[2019-07-31] MEDS ORDERED: *HR* LORazepam 1 MG TABLET PO PRN (12:30)
[2019-07-31] MEDS ORDERED: *HR* LORazepam 2 MG/ML VIAL IM PRN (12:30)
[2019-07-31] MEDS ORDERED: Haloperidol Lactate 5 MG/ML VIAL IM PRN (12:30)
[2019-07-31] MEDS ORDERED: MOM Conc 10 ML UD.LIQ PO PRN (12:30)
[2019-07-31] MEDS ORDERED: Ondansetron ODT 4 MG TAB.RAPDIS PO PRN (16:35)
[2019-07-31] MEDS ORDERED: NON-FORMULARY MEDICATION 1 EACH EACH (Magnesium 250 MG) PO SCH (16:45)
[2019-07-31] MEDS: Lurasidone 20 MG TABLET PO SCH (17:41)
[2019-07-31] MEDS: Loratadine 10 MG TABLET PO SCH (17:42)
[2019-07-31] MEDS ORDERED: Ibuprofen 400 MG TABLET PO PRN (18:00)
[2019-07-31] MEDS: (Vilazodone Hcl [Viibryd] 40 MG) PO SCH (18:11)
[2019-07-31] MEDS ORDERED: traZODone 50 MG TABLET PO PRN (21:00)
[2019-07-31] MEDS: Pregabalin 50 MG CAPSULE PO SCH (21:17)
[2019-07-31] MEDS: traZODone 50 MG TABLET PO SCH (21:18)
[2019-07-31] MEDS: Temazepam 15 MG CAPSULE PO SCH (21:18)
[2019-07-31] MEDS: Baclofen 10 MG TABLET PO SCH (21:18)
[2019-08-01] MEDS: *HR* LORazepam 1 MG TABLET PO PRN (04:44)
[2019-08-01] MEDS: Baclofen 10 MG TABLET PO SCH ×2 (09:20→21:20)
[2019-08-01] MEDS: Pregabalin 50 MG CAPSULE PO SCH ×2 (09:20→21:20)
[2019-08-01] MEDS: Loratadine 10 MG TABLET PO SCH (09:20)
[2019-08-01] MEDS: Lurasidone 20 MG TABLET PO SCH (09:20)
[2019-08-01] MEDS: Magnesium Oxide 400 MG TABLET PO SCH (09:20)
[2019-08-01] MEDS: Fluticasone Propionate Nasal 50 MCG/SPRAY BOTTLE NS PRN (09:22)
[2019-08-01] MEDS: (Vilazodone Hcl [Viibryd] 40 MG) PO SCH (09:31)
--- NOTE | 2019-08-01 12:51 | Psychiatry History & Physical ---
Date of Encounter: 08/01/19 Time of Encounter: 12:15 History of Present Illness Patient Stated Chief Complaint: "I'm about the same as yesterday." Medicare Admission Attestation: For traditional Medicare patients the provided hospital inpatient services are reasonable and necessary and in the case of services not specified as inpatient-only under 42 CFR 419.22 (n), that they are appropriately provided as inpatient services in accordance 42 CFR 412.3. For Critical Access Hospital the patient may reasonably be expected to be discharged or transferred to a hospital within 96 hours after admission to the Critical Access Hospital. Admitted From: Emergency Dept ([facility]ia [facility] referral, Dr. Jarvis) Plans for Post Hospital Care: Home History of Present Illness: Ms. Gamboa is a 34 year old female who was referred for admission from [facility] by Dr. Jarvis. Dr. Jarvis saw her yesterday in her clinic and felt she was unstable at that time and in need of inpatient stabilization. Patient tells me today that she is "about the same as yesterday". Regarding her mental health. Patient states that she did sleep a little bit last night, but had a nightmare. She talks of her feelings of guilt and shame; feels like she is a burden on her family. She recently started a new job after being fired from her previous job. She states that she was in a probationary period when she had to have a total abdominal hysterectomy. Taking the time off from work for the surgery, her previous employer he ended up firing her for violating her probationary agreement of not missing time at work. She started a new job in the past 2 or 3 weeks and is working evening shift. She states she has tried to adjust her medications to her new work schedule and it is simply not working out. She states she is missed at least 3 if not 4 doses of her Viibryd, Seroquel, Restoril and is only taking half or other medications. She states that she reported for her appointment with Dr. Jarvis yesterday and was feeling emotionally unstable. Patient tells me "Dr. Jarvis does not want me working night shifts and neither does my . I'm probably going to be fired from this job now too." Patient states it has been hard to working evening shift, come home and get her kids off to school, then try to sleep during the day and manage her medications. She was stable prior to starting this new job. She reports in the last month, she has had increased feelings of hopelessness and helplessness, she is very tired and feels depressed. She states that she has no energy, decreased appetite, is having problems sleeping with sporadic nightmares (not recurrent of any subject or topic) and has had thoughts of self harm. When she tries to sleep, she has depressive ruminations and becomes tearful. She denies any history of abuse, any denies any hypervigilance or paranoia. She denies going days and days without the need for sleep. She does acknowledge getting increasingly torres at times and having difficulty focusing her thoughts. She denies any auditory/visual hallucinations. She denies any mind reading or thought control. Patient is not actively suicidal at this time but does have passive thoughts that she would make other people's lives easier. Patient starts crying during the interview stating that she feels like a burden and she feels dumb that she is an [employer], who works of medications but can't manage her own medications. I had a long discussion with the patient in regards to the fact that she has been noncompliant with her medication secondary to her job change and adjusting times. Being noncompliant, not taking the medications routinely, would throw her biochemistry and emotional stability off. Patient states she understands this. I also spoke to the patient about the fact that with mental health issues, that it is imperative for her to get good quality sleep. If sleep patterns are thrown off, it is also very likely that her emotional patterns be thrown off too. I restarted the patient on her medications as is currently being discussed prescribed by Dr. Jarvis at [facility]. I suggested to the patient we not make any medication adjustments at this time, but just get her reestablished on the medications and see if that stabilizes her thoughts and moods to where she was prior to trying to adjust the doses and times of her medications when she started her new job. She thought that was a good idea she was willing to do that. I suggested that she attend groups on the unit and trying get out and socialize, learn things in the classes that are taught. Emphasis that she gets plenty of rest and eats properly while she is here and after discharge. Patient is agreeable to this she will be monitored for safety and for signs/symptoms of mental health as well as medication management. Past Med Surg Social Fam HX - Past Medical History Source: patient Medical history: asthma, GERD, migraine, other - Past Psychiatric History Psychiatric history: Reports: bipolar, prior suicide attempt, previous psychiatric hospitalization Past psychiatric history details: 2 previous hospitalizations in 2016 for mood instability with SI Family psychiatric history: Yes (Mother depression) Family History of Suicide: None - Past Surgical History Surgical History: REGINA/BSO (One ovary removed, not Bilateral) - Social History Smoking Status: Never smoker Smokeless Tobacco Status: No Alcohol use: none Drug use: none Occupational status: employed (Working a new job on the evening shift. Started 3 weeks ago. [employer]) Current living situation: Home - Independent Activity Level: Independent ambulation Recent Out of Country Travel Within the Last 8 Weeks: No Exposure or Possible Exposure to Illness During Travel: No Medications & Allergies Baclofen 20 mg PO BID 07/31/19 [History] Buspirone HCl [Buspar] 30 mg PO BID 07/31/19 [History] Fexofenadine HCl 60 mg PO DAILY 07/31/19 [History] Fluticasone Propionate Nasal [Flonase] 1 spray NS DAILY PRN 07/31/19 [History] LORazepam [Ativan] 1 mg PO BID PRN 07/31/19 [History] Lurasidone [Latuda] 20 mg PO DAILY 07/31/19 [History] Magnesium 250 mg PO DAILY 07/31/19 [History] Montelukast [Singulair] 10 mg PO HS 07/31/19 [History] Ondansetron ODT [Zofran ODT] 4 mg PO Q6H PRN 07/31/19 [History] Pregabalin [Lyrica] 50 mg PO BID 07/31/19 [History] Promethazine [Phenergan] 25 mg PO Q6HR PRN 07/31/19 [History] Propranolol [Inderal] 20 mg PO DAILY 07/31/19 [History] Quetiapine Fumarate [Seroquel] 25 mg PO HS 07/31/19 [History] Temazepam [Restoril] 30 mg PO HS 07/31/19 [History] Trazodone HCl 150 mg PO HS 07/31/19 [History] Vilazodone HCl [Viibryd] 40 mg PO DAILY 07/31/19 [History] Allergy/AdvReac Type Severity Reaction Status Date / Time eletriptan [From Relpax] Allergy Anaphylaxis Verified 07/31/19 10:58 sumatriptan [From Imitrex] Allergy Anaphylaxis Verified 07/15/17 11:27 tuberculin,PPD,multi-puncture AdvReac See Verified 07/31/19 10:58 Comments Review of Systems Psychiatric: Reports: depression, anxiety, abnormal sleep pattern, suicidal ideation, change in appetite, anhedonia, confusion, difficulty concentrating, hopelessness, irritability, panic attacks Exam - HEENT Head exam IM: Present: atraumatic Eye exam IM: Present: EOMI - Neurological Neurological exam: Present: CN II-XII intact (per ED eval) - Constitutional Vitals: Temp Pulse Resp BP Pulse Ox 97.8 F 95 16 124/81 97 08/01/19 09:00 08/01/19 09:00 08/01/19 09:00 08/01/19 09:00 08/01/19 09:00 General appearance: age & developmentally appropriate, well-groomed, obese - Musculoskeletal Gait: slow Station: stooped Strength & Tone: normal for patient - Psychiatric Patient Orientation: Yes Person, Yes Time, Yes Place, Yes Circumstance Level of alertness: Follows commands Behavior: cooperative, anxious, tearful Psychomotor activity: Normal Eye Contact: Maintains Eye Contact Mood Description: Depressed, Anxious Affect description: congruent with mood Speech Volume: Normal Speech pattern: normal rate, normal rhythm, normal tone, fluent Language & Vocabulary: consistent with education Thought Process: Intact, Linear Thought Content: Yes Suicidal ideation (denies active thought. +passive thought, no plan) Attention Span Ability: Capable of Focused Attention Memory Description: Grossly Intact Patient Reliability: Questionable Historian Fund of knowledge: Yes average Intelligence Estimate: Average Judgment: Fair Insight: Partial Results - Labs Labs: Laboratory Last Values WBC 7.8 K/mcL (4.3-11.1) 07/31/19 11:06 RBC 4.76 M/mcL (3.82-4.97) 07/31/19 11:06 Hgb 14.2 g/dL (11.5-15.4) 07/31/19 11:06 Hct 42.9 % (35.3-44.9) 07/31/19 11:06 MCV 90.1 fL (83.0-100.0) 07/31/19 11:06 MCH 29.8 pg (28.0-33.3) 07/31/19 11:06 MCHC 33.1 g/dL (31.6-35.5) 07/31/19 11:06 RDW 12.7 % (11.5-14.5) 07/31/19 11:06 Plt Count 363 K/mcL (140-400) 07/31/19 11:06 MPV 10.1 fL (9.4-12.4) 07/31/19 11:06 Immature Gran % 0.4 % (0-4) 07/31/19 11:06 Seg Neutrophils % 54.3 % 07/31/19 11:06 Lymphocytes % 36.0 % 07/31/19 11:06 Monocytes % 8.0 % 07/31/19 11:06 Eosinophils % 0.9 % 07/31/19 11:06 Basophils % 0.4 % 07/31/19 11:06 Neutrophils # 4.3 K/mcL (1.6-8.9) 07/31/19 11:06 Lymphocytes # 2.8 K/mcL (0.6-4.6) 07/31/19 11:06 Monocytes # 0.6 K/mcL (0.0-1.3) 07/31/19 11:06 Eosinophils # 0.1 K/mcL (0.0-0.6) 07/31/19 11:06 Basophils # 0.0 K/mcL (0.0-0.2) 07/31/19 11:06 Sodium 140 mEq/L (136-145) 07/31/19 11:06 Potassium 3.9 mEq/L (3.5-5.1) 07/31/19 11:06 Chloride 105 mEq/L (98-107) 07/31/19 11:06 Carbon Dioxide 26 mEq/L (23-29) 07/31/19 11:06 BUN 20 mg/dL (6-20) 07/31/19 11:06 Creatinine 0.68 mg/dL (0.60-1.20) 07/31/19 11:06 Est GFR ( Amer) > 60 (> 60) 07/31/19 11:06 Est GFR (Non-Af Amer) > 60 (> 60) 07/31/19 11:06 BUN/Creatinine Ratio 29 (6-26) H 07/31/19 11:06 Glucose 92 mg/dL (70-105) 07/31/19 11:06 Calculated Osmolality 292 (280-300) 07/31/19 11:06 Calcium 9.6 mg/dL (8.6-10.3) 07/31/19 11:06 Total Bilirubin 0.4 mg/dL (0.3-1.0) 07/31/19 11:06 Direct Bilirubin 0.0 mg/dL (0.0-0.2) 07/31/19 11:06 Indirect Bilirubin 0.4 mg/dL (0.0-1.2) 07/31/19 11:06 AST 17 Units/L (13-39) 07/31/19 11:06 ALT 16 Units/L (7-52) 07/31/19 11:06 Alkaline Phosphatase 64 Units/L (34-104) 07/31/19 11:06 Serum Total Protein 7.9 g/dL (6.4-8.9) 07/31/19 11:06 Albumin 4.5 g/dL (3.5-5.7) 07/31/19 11:06 Globulin 3.4 g/dL (2.4-3.5) 07/31/19 11:06 Albumin/Globulin Ratio 1.3 (1.1-2.2) 07/31/19 11:06 Urine Test Negative (Negative) 07/31/19 11:01 Salicylates < 2.5 mg/dL (15.0-30.0) L 07/31/19 11:06 Urine Opiates Screen Negative ng/mL (Wjtqpx=761) 07/31/19 11:01 Ur Buprenorphine Scrn Negative ng/mL (Cutoff=5) 07/31/19 11:01 Acetaminophen < 10 mcg/mL (10-20) L 07/31/19 11:06 Ur Barbiturates Screen Negative ng/mL (Ajypfs=442) 07/31/19 11:01 Ur Phencyclidine Scrn Negative ng/mL (Cutoff=25) 07/31/19 11:01 Ur Amphetamines Screen Negative ng/mL (Xcyxsm=3154) 07/31/19 11:01 U Benzodiazepines Scrn Positive ng/mL (Okftuu=229) H 07/31/19 11:01 Urine Cocaine Screen Negative ng/mL (Cutoff= 300) 07/31/19 11:01 U Marijuana (THC) Screen Negative ng/mL (Cutoff = 50) 07/31/19 11:01 Ur Drug Screen Interp See Below 07/31/19 11:01 Ethyl Alcohol < 10 mg/dL (Less than 10) 07/31/19 11:06 Assessment and Plan (1) Bipolar disorder Current visit: Yes Status: Acute Plan: Admit inpatient for safety and stabilization, Close observation, Suicide Precautions per unit protocol, Encourage participation in unit milieu, Monitor sleep, Monitor appetite Risks, benefits, side effects, alternatives discussed w/pt: Yes (Continue her current outpatient medications as written) Patient agreeable to treatment: Yes (Re-establish med compliance and stabilize) Estimated Length of Stay (Days): 5 Qualifiers: Active/Remission status: currently active Current bipolar episode type: mixed Current episode severity: severe Psychotic features: without psychotic features Qualified Code(s): F31.63 - Bipolar disorder, current episode mixed, severe, without psychotic features
[2019-08-01 15:51] LABS: Thyroid Stimulating Hormone 1.073 mcIU/mL (0.340-5.600)
[2019-08-01] MEDS: traZODone 50 MG TABLET PO SCH (21:19)
[2019-08-01] MEDS: Temazepam 15 MG CAPSULE PO SCH (21:21)
--- NOTE | 2019-08-02 09:11 | Psychiatry History & Physical ---
Date of Encounter: 08/02/19 History of Present Illness Medicare Admission Attestation: For traditional Medicare patients the provided hospital inpatient services are reasonable and necessary and in the case of services not specified as inpatient-only under 42 CFR 419.22 (n), that they are appropriately provided as inpatient services in accordance 42 CFR 412.3. For Critical Access Hospital the patient may reasonably be expected to be discharged or transferred to a hospital within 96 hours after admission to the Critical Access Hospital. History of Present Illness: Ms. Gamboa is a 34 year old female Past Med Surg Social Fam HX - Past Medical History Medical history: asthma, GERD, migraine, other - Past Psychiatric History Psychiatric history: Reports: previous psychiatric hospitalization. Denies: prior suicide attempt - Past Surgical History Surgical History: REGINA/BSO (One ovary removed, not Bilateral) - Social History Smoking Status: Never smoker Smokeless Tobacco Status: No Alcohol use: none Drug use: none Medications & Allergies Baclofen 20 mg PO BID 07/31/19 [History] Buspirone HCl [Buspar] 30 mg PO BID 07/31/19 [History] Fexofenadine HCl 60 mg PO DAILY 07/31/19 [History] Fluticasone Propionate Nasal [Flonase] 1 spray NS DAILY PRN 07/31/19 [History] LORazepam [Ativan] 1 mg PO BID PRN 07/31/19 [History] Lurasidone [Latuda] 20 mg PO DAILY 07/31/19 [History] Magnesium 250 mg PO DAILY 07/31/19 [History] Montelukast [Singulair] 10 mg PO HS 07/31/19 [History] Ondansetron ODT [Zofran ODT] 4 mg PO Q6H PRN 07/31/19 [History] Pregabalin [Lyrica] 50 mg PO BID 07/31/19 [History] Promethazine [Phenergan] 25 mg PO Q6HR PRN 07/31/19 [History] Propranolol [Inderal] 20 mg PO DAILY 07/31/19 [History] Quetiapine Fumarate [Seroquel] 25 mg PO HS 07/31/19 [History] Temazepam [Restoril] 30 mg PO HS 07/31/19 [History] Trazodone HCl 150 mg PO HS 07/31/19 [History] Vilazodone HCl [Viibryd] 40 mg PO DAILY 07/31/19 [History] Allergy/AdvReac Type Severity Reaction Status Date / Time eletriptan [From Relpax] Allergy Anaphylaxis Verified 07/31/19 10:58 sumatriptan [From Imitrex] Allergy Anaphylaxis Verified 07/15/17 11:27 tuberculin,PPD,multi-puncture AdvReac See Verified 07/31/19 10:58 Comments Review of Systems Psychiatric: Reports: depression, anxiety, abnormal sleep pattern, suicidal ideation, change in appetite, anhedonia, confusion, difficulty concentrating, hopelessness, irritability, panic attacks Exam - HEENT Head exam IM: Present: normal inspection - Neurological Neurological exam: Present: CN II-XII intact - Respiratory Respiratory exam IM: Absent: respiratory distress - GI/Abdominal GI/Abdominal exam IM: Present: no peritoneal signs - Skin Skin exam IM: Present: abrasion - Constitutional Vitals: Temp Pulse Resp BP Pulse Ox 98.0 F 70 16 124/86 97 08/01/19 20:49 08/01/19 20:49 08/01/19 20:49 08/01/19 20:49 08/01/19 20:49 Results - Drug Levels and Toxicology Drug Levels and Toxicology: Drug Levels and Toxicity 07/31/19 11:06 Acetaminophen < 10 L Ethyl Alcohol < 10 - Labs Labs: Laboratory Last Values WBC 7.8 K/mcL (4.3-11.1) 07/31/19 11:06 RBC 4.76 M/mcL (3.82-4.97) 07/31/19 11:06 Hgb 14.2 g/dL (11.5-15.4) 07/31/19 11:06 Hct 42.9 % (35.3-44.9) 07/31/19 11:06 MCV 90.1 fL (83.0-100.0) 07/31/19 11:06 MCH 29.8 pg (28.0-33.3) 07/31/19 11:06 MCHC 33.1 g/dL (31.6-35.5) 07/31/19 11:06 RDW 12.7 % (11.5-14.5) 07/31/19 11:06 Plt Count 363 K/mcL (140-400) 07/31/19 11:06 MPV 10.1 fL (9.4-12.4) 07/31/19 11:06 Immature Gran % 0.4 % (0-4) 07/31/19 11:06 Seg Neutrophils % 54.3 % 07/31/19 11:06 Lymphocytes % 36.0 % 07/31/19 11:06 Monocytes % 8.0 % 07/31/19 11:06 Eosinophils % 0.9 % 07/31/19 11:06 Basophils % 0.4 % 07/31/19 11:06 Neutrophils # 4.3 K/mcL (1.6-8.9) 07/31/19 11:06 Lymphocytes # 2.8 K/mcL (0.6-4.6) 07/31/19 11:06 Monocytes # 0.6 K/mcL (0.0-1.3) 07/31/19 11:06 Eosinophils # 0.1 K/mcL (0.0-0.6) 07/31/19 11:06 Basophils # 0.0 K/mcL (0.0-0.2) 07/31/19 11:06 Sodium 140 mEq/L (136-145) 07/31/19 11:06 Potassium 3.9 mEq/L (3.5-5.1) 07/31/19 11:06 Chloride 105 mEq/L (98-107) 07/31/19 11:06 Carbon Dioxide 26 mEq/L (23-29) 07/31/19 11:06 BUN 20 mg/dL (6-20) 07/31/19 11:06 Creatinine 0.68 mg/dL (0.60-1.20) 07/31/19 11:06 Est GFR ( Amer) > 60 (> 60) 07/31/19 11:06 Est GFR (Non-Af Amer) > 60 (> 60) 07/31/19 11:06 BUN/Creatinine Ratio 29 (6-26) H 07/31/19 11:06 Glucose 92 mg/dL (70-105) 07/31/19 11:06 Calculated Osmolality 292 (280-300) 07/31/19 11:06 Calcium 9.6 mg/dL (8.6-10.3) 07/31/19 11:06 Total Bilirubin 0.4 mg/dL (0.3-1.0) 07/31/19 11:06 Direct Bilirubin 0.0 mg/dL (0.0-0.2) 07/31/19 11:06 Indirect Bilirubin 0.4 mg/dL (0.0-1.2) 07/31/19 11:06 AST 17 Units/L (13-39) 07/31/19 11:06 ALT 16 Units/L (7-52) 07/31/19 11:06 Alkaline Phosphatase 64 Units/L (34-104) 07/31/19 11:06 Serum Total Protein 7.9 g/dL (6.4-8.9) 07/31/19 11:06 Albumin 4.5 g/dL (3.5-5.7) 07/31/19 11:06 Globulin 3.4 g/dL (2.4-3.5) 07/31/19 11:06 Albumin/Globulin Ratio 1.3 (1.1-2.2) 07/31/19 11:06 TSH 1.073 mcIU/mL (0.340-5.600) 07/31/19 11:06 Urine Test Negative (Negative) 07/31/19 11:01 Salicylates < 2.5 mg/dL (15.0-30.0) L 07/31/19 11:06 Urine Opiates Screen Negative ng/mL (Txbxci=242) 07/31/19 11:01 Ur Buprenorphine Scrn Negative ng/mL (Cutoff=5) 07/31/19 11:01 Acetaminophen < 10 mcg/mL (10-20) L 07/31/19 11:06 Ur Barbiturates Screen Negative ng/mL (Qjlcvh=936) 07/31/19 11:01 Ur Phencyclidine Scrn Negative ng/mL (Cutoff=25) 07/31/19 11:01 Ur Amphetamines Screen Negative ng/mL (Ngznpi=0951) 07/31/19 11:01 U Benzodiazepines Scrn Positive ng/mL (Mcygtf=830) H 07/31/19 11:01 Urine Cocaine Screen Negative ng/mL (Cutoff= 300) 07/31/19 11:01 U Marijuana (THC) Screen Negative ng/mL (Cutoff = 50) 07/31/19 11:01 Ur Drug Screen Interp See Below 07/31/19 11:01 Ethyl Alcohol < 10 mg/dL (Less than 10) 07/31/19 11:06
[2019-08-02] MEDS: Lurasidone 20 MG TABLET PO SCH (09:39)
[2019-08-02] MEDS: Loratadine 10 MG TABLET PO SCH (09:40)
[2019-08-02] MEDS: Baclofen 10 MG TABLET PO SCH ×2 (09:41→20:10)
[2019-08-02] MEDS: Magnesium Oxide 400 MG TABLET PO SCH (09:41)
[2019-08-02] MEDS: (Vilazodone Hcl [Viibryd] 40 MG) PO SCH (09:42)
[2019-08-02] MEDS: Pregabalin 50 MG CAPSULE PO SCH ×2 (09:42→20:11)
[2019-08-02] MEDS: Fluticasone Propionate Nasal 50 MCG/SPRAY BOTTLE NS PRN (09:42)
--- NOTE | 2019-08-02 11:14 | Psychiatry Progress Note ---
Date of Encounter: 08/02/19 Time of Encounter: 09:00 Subjective Interval history: Patient continues to feel very depressed. She reports sad mood, decreased interest, feelings of guilt and worthlessness, low energy, hopelessness, and suicidal ideations. She feels she has been under a lot of stress recently. She also feels that working nights probably contributed to her difficulties. Review of Systems Psychiatric: Reports: depression, anxiety, abnormal sleep pattern, suicidal ideation, change in appetite, anhedonia, confusion, difficulty concentrating, hopelessness, irritability, panic attacks Results - Vital Signs Vital Signs: Temp Pulse Resp BP Pulse Ox 97.9 F 76 18 113/80 95 08/02/19 09:00 08/02/19 09:00 08/02/19 09:00 08/02/19 09:00 08/02/19 09:00 - Drug Levels and Toxicology Drug Levels and Toxicology: Drug Levels and Toxicity 07/31/19 11:06 Acetaminophen < 10 L Ethyl Alcohol < 10 - Labs Labs: Laboratory Results - last 24 hr 07/31/19 11:06 Sodium 140 Potassium 3.9 Chloride 105 Carbon Dioxide 26 BUN 20 Creatinine 0.68 Est GFR ( Amer) > 60 Est GFR (Non-Af Amer) > 60 BUN/Creatinine Ratio 29 H Glucose 92 Calculated Osmolality 292 Calcium 9.6 Total Bilirubin 0.4 Direct Bilirubin 0.0 Indirect Bilirubin 0.4 AST 17 ALT 16 Alkaline Phosphatase 64 Serum Total Protein 7.9 Albumin 4.5 Globulin 3.4 Albumin/Globulin Ratio 1.3 TSH 1.073 Salicylates < 2.5 L Acetaminophen < 10 L Ethyl Alcohol < 10 Assessment and Plan (1) Bipolar 2 disorder, major depressive episode Current visit: No Status: Acute Plan: Continue hospitalization, Close observation, Suicide Precautions per unit protocol, Encourage participation in unit milieu, Group Therapy, Monitor sleep Additional Plan: Latuda changed to 5 PM so she will be taking with a large meal. She just got vibrant back today as her brought in for her. Will stop Seroquel as it is a very low dose and now she is on 2 antipsychotics. Consider further increase Latuda in the future. Check TSH, lipids, hemoglobin A1c. A IMS equals 0. Consider adjustment of BuSpar tomorrow she feels that is not helpful. Encourage group attendance. Risks, benefits, side effects, alternatives discussed w/pt: Yes Patient agreeable to treatment: Yes Consult Discharge Plan - Plan Referrals: [facility] [Outside] - 08/08/19 8:40 am (You have an appointment scheduled for Thursday, August 08, 2019 at 8:[address] Deneen Jarvis M.D. for medication management. Please contact the office at least 24 hours in advance if you are unable to keep your appointment(s). ) Vipin Dinh [Partnered Physician] - (Please contact the office at the number above and follow up with your primary care provider as needed. Please keep your primary care provider informed of any changes in your medications or medical conditions. ) Psychiatry Exam - Constitutional Vitals: Temp Pulse Resp BP Pulse Ox 97.9 F 76 18 113/80 95 08/02/19 09:00 08/02/19 09:00 08/02/19 09:00 08/02/19 09:00 08/02/19 09:00 General appearance: age & developmentally appropriate - Musculoskeletal Gait: slow Station: stooped Strength & Tone: normal for patient - Psychiatric Patient Orientation: Yes Person, Yes Time, Yes Place, Yes Circumstance Level of alertness: Alert Behavior: tearful Psychomotor activity: Slowed Eye Contact: Minimal Contact Mood Description: Depressed Patient description of mood: Sad Affect description: dysphoric Speech Volume: Soft/Quiet Speech pattern: slowed Language & Vocabulary: limited Thought Process: Intact Thought Content: Yes Suicidal ideation, No Homicidal ideation Perceptual Disturbances: No Auditory hallucinations, No Visual hallucinations Attention Span Ability: Capable of Focused Attention Memory Description: Grossly Intact Patient Reliability: Reliable Historian Fund of knowledge: Yes abstraction ability, Yes aware of current events Intelligence Estimate: Average Judgment: Limited Insight: Minimal
[2019-08-02] MEDS: hydrOXYzine pamoate 25 MG CAPSULE PO PRN (11:43)
[2019-08-02 12:14] LABS: Chol/HDL Ratio 5.5 (0-4.9)
[2019-08-02 12:28] LABS: Thyroid Stimulating Hormone 1.548 mcIU/mL (0.340-5.600)
[2019-08-02 13:00] LABS: Estimated Average Glucose 100 mg/dl
[2019-08-02] MEDS: Temazepam 15 MG CAPSULE PO SCH (20:10)
[2019-08-02] MEDS: traZODone 50 MG TABLET PO SCH (20:11)
[2019-08-03] MEDS: *HR* LORazepam 1 MG TABLET PO PRN (01:30)
[2019-08-03] MEDS: hydrOXYzine pamoate 25 MG CAPSULE PO PRN ×2 (04:02→19:59)
[2019-08-03] MEDS: Magnesium Oxide 400 MG TABLET PO SCH (08:38)
[2019-08-03] MEDS: Loratadine 10 MG TABLET PO SCH (08:38)
[2019-08-03] MEDS: Baclofen 10 MG TABLET PO SCH ×2 (08:38→21:09)
[2019-08-03] MEDS: Pregabalin 50 MG CAPSULE PO SCH ×2 (08:38→21:08)
[2019-08-03] MEDS: (Vilazodone Hcl [Viibryd] 40 MG) PO SCH (08:40)
--- NOTE | 2019-08-03 10:35 | Psychiatry Progress Note ---
Date of Encounter: 08/03/19 Time of Encounter: 08:20 Subjective Interval history: Patient reports she is doing better. She denies suicidal or homicidal thoughts, ideations, or plans. She has been having nightmares related to past medical trauma. Review of Systems Psychiatric: Reports: abnormal sleep pattern Results - Vital Signs Vital Signs: Temp Pulse Resp BP Pulse Ox 98.6 F 107 16 132/84 97 08/03/19 09:00 08/03/19 09:00 08/03/19 09:00 08/03/19 09:00 08/03/19 09:00 - Labs Labs: Laboratory Results - last 24 hr 08/02/19 08/02/19 11:29 11:29 Est Mean Plasma Glucose 100 Hemoglobin A1c 5.1 Triglycerides 314 H Cholesterol 263 H LDL Cholesterol, Calc 152 H VLDL Cholesterol, Calc 63 H HDL Cholesterol 48 Cholesterol/HDL Ratio 5.5 H TSH 1.548 Assessment and Plan (1) Bipolar 2 disorder, major depressive episode Current visit: No Status: Acute Plan: Continue hospitalization, Close observation, Suicide Precautions per unit protocol, Encourage participation in unit milieu, Group Therapy, Monitor sleep, Monitor appetite Additional Plan: prazosin 1mg hs nightmares. Likely d/c tomorrow. Has counselling center appointment 08/08 Risks, benefits, side effects, alternatives discussed w/pt: Yes Patient agreeable to treatment: Yes Consult Discharge Plan - Plan Referrals: [facility] [Outside] - 08/08/19 8:40 am (You have an appointment scheduled for Tuesday, August 08, 2019 at 8:[address] Deneen Jarvis M.D. for medication management. Please contact the office at least 24 hours in advance if you are unable to keep your appointment(s). ) Vipin Dinh [Partnered Physician] - (Please contact the office at the number above and follow up with your primary care provider as needed. Please keep your primary care provider informed of any changes in your medications or medical conditions. ) Psychiatry Exam - Constitutional Vitals: Temp Pulse Resp BP Pulse Ox 98.6 F 107 16 132/84 97 08/03/19 09:00 08/03/19 09:00 08/03/19 09:00 08/03/19 09:00 08/03/19 09:00 General appearance: age & developmentally appropriate, well-groomed, well- nourished - Musculoskeletal Gait: normal Station: relaxed Strength & Tone: normal for patient - Psychiatric Patient Orientation: Yes Person, Yes Time, Yes Place, Yes Circumstance Level of alertness: Alert Behavior: calm, cooperative Psychomotor activity: Normal Eye Contact: Maintains Eye Contact Mood Description: Euthymic/stable Patient description of mood: good Affect description: congruent with mood, full range Speech Volume: Normal Speech pattern: normal rate, normal rhythm, normal tone, fluent, spontaneous Language & Vocabulary: consistent with education Thought Process: Linear, Goal Oriented Thought Content: No Suicidal ideation, No Homicidal ideation, No Overt delusions Perceptual Disturbances: No Auditory hallucinations, No Visual hallucinations Attention Span Ability: Capable of Focused Attention Memory Description: Grossly Intact Patient Reliability: Reliable Historian Fund of knowledge: Yes abstraction ability, Yes aware of current events Intelligence Estimate: Average Judgment: Good Insight: Full
[2019-08-03] MEDS ORDERED: Lurasidone 20 MG TABLET PO SCH (17:00)
[2019-08-03] MEDS: Temazepam 15 MG CAPSULE PO SCH (21:08)
[2019-08-03] MEDS: traZODone 50 MG TABLET PO SCH (21:09)
[2019-08-04] MEDS: Pregabalin 50 MG CAPSULE PO SCH (09:11)
[2019-08-04] MEDS: Loratadine 10 MG TABLET PO SCH (09:12)
[2019-08-04] MEDS: (Vilazodone Hcl [Viibryd] 40 MG) PO SCH (09:12)
[2019-08-04] MEDS: Magnesium Oxide 400 MG TABLET PO SCH (09:12)
[2019-08-04] MEDS: Baclofen 10 MG TABLET PO SCH (09:12)
[2019-08-04 10:02] VITALS: BP 123/84
--- NOTE | 2019-08-04 10:20 | Discharge Summary ---
Date of Encounter: 08/04/19 Time of Encounter: 08:00 Diagnosis - Discharge Diagnosis (1) Bipolar 2 disorder, major depressive episode Status: Acute Medications - Discharge Medications Prescriptions: Prazosin [Minipress] 1 mg PO HS #15 capsule Transmission Status: Pending to [facility] traZODone [TraZODone] 50 mg PO HS PRN #15 tablet PRN Reason: Insomnia Transmission Status: Pending to [facility] hydrOXYzine pamoate [Vistaril] 25 mg PO TID PRN #30 capsule PRN Reason: Anxiety Transmission Status: Pending to [facility] Baclofen 20 mg PO BID 07/31/19 [History] Buspirone HCl [Buspar] 30 mg PO BID 07/31/19 [History] Fluticasone Propionate Nasal [Flonase] 1 spray NS DAILY PRN 07/31/19 [History] LORazepam [Ativan] 1 mg PO BID PRN 07/31/19 [History] Lurasidone [Latuda] 20 mg PO DAILY 07/31/19 [History] Magnesium 250 mg PO DAILY 07/31/19 [History] Montelukast [Singulair] 10 mg PO HS 07/31/19 [History] Ondansetron ODT [Zofran ODT] 4 mg PO Q6H PRN 07/31/19 [History] Pregabalin [Lyrica] 50 mg PO BID 07/31/19 [History] Promethazine [Phenergan] 25 mg PO Q6HR PRN 07/31/19 [History] Propranolol [Inderal] 20 mg PO DAILY 07/31/19 [History] Temazepam [Restoril] 30 mg PO HS 07/31/19 [History] Trazodone HCl 150 mg PO HS 07/31/19 [History] Vilazodone HCl [Viibryd] 40 mg PO DAILY 07/31/19 [History] Loratadine [Claritin] 10 mg PO DAILY tablet 08/04/19 [Rx] Prazosin [Minipress] 1 mg PO HS #15 capsule 08/04/19 [Rx] hydrOXYzine pamoate [Vistaril] 25 mg PO TID PRN #30 capsule 08/04/19 [Rx] traZODone [TraZODone] 50 mg PO HS PRN #15 tablet 08/04/19 [Rx] Allergy/AdvReac Type Severity Reaction Status Date / Time eletriptan [From Relpax] Allergy Anaphylaxis Verified 07/31/19 10:58 sumatriptan [From Imitrex] Allergy Anaphylaxis Verified 07/15/17 11:27 tuberculin,PPD,multi-puncture AdvReac See Verified 07/31/19 10:58 Comments Results Procedures and tests throughout hospitalization: Completed Lab Orders Category Date Time Status Acetaminophen Stat Lab 07/31/19 11:06 Completed Basic Metabolic Panel Stat Lab 07/31/19 11:06 Completed Complete Blood Count [HEME] Stat Lab 07/31/19 11:06 Completed Drug Screen, Urine [UCHEM] Stat Lab 07/31/19 11:01 Completed Ethanol Stat Lab 07/31/19 11:06 Completed Hepatic Panel Stat Lab 07/31/19 11:06 Completed Hgb A1C Routine Lab 08/02/19 11:29 Completed Lipid Panel Routine Lab 08/02/19 11:29 Completed Test Result, Urine [URIN] Stat Lab 07/31/19 11:01 Completed Salicylate Stat Lab 07/31/19 11:06 Completed Thyroid Stimulating Hormone Routine Lab 08/02/19 11:29 Completed Thyroid Stimulating Hormone Stat Lab 07/31/19 11:06 Completed Provider Date of admission: 07/31/19 12:15 Primary care physician: PCP NONE Discharging clinician: Jacque Russo Psychiatry Exam - Constitutional Vitals: Temp Pulse Resp BP Pulse Ox 97.4 F L 79 16 123/84 97 08/04/19 09:00 08/04/19 09:00 08/04/19 09:00 08/04/19 09:00 08/04/19 09:00 General appearance: age & developmentally appropriate, well-groomed, well-nouris hed - Musculoskeletal Gait: normal Station: relaxed Strength & Tone: normal for patient - Psychiatric Patient Orientation: Yes Person, Yes Time, Yes Place, Yes Circumstance Level of alertness: Alert Behavior: calm, cooperative Psychomotor activity: Normal Eye Contact: Maintains Eye Contact Mood Description: Euthymic/stable Patient description of mood: ok Affect description: congruent with mood, full range Speech Volume: Normal Speech pattern: normal rate, normal rhythm, normal tone, fluent, spontaneous Language & Vocabulary: consistent with education Thought Process: Linear, Goal Oriented Thought Content: No Suicidal ideation, No Homicidal ideation, No Overt delusions Perceptual Disturbances: No Auditory hallucinations, No Visual hallucinations Attention Span Ability: Capable of Focused Attention Memory Description: Grossly Intact Patient Reliability: Reliable Historian Fund of knowledge: Yes abstraction ability, Yes aware of current events Intelligence Estimate: Average Judgment: Good Insight: Full Hospital Course Hospital course: Ms. Gamboa is a 34 year old female who was admitted for depression. Her medications were adjusted.Patient was educated of diagnosis and the risk-benefit side effects of this alternative treatment options and was monitored for responsiveness and side effects. Mood anxiety sleep and appetite interest improved as did future orientation. Self-harm thoughts subsided, thinking cleared, psychosis resolved, and mood stabilized. Patient was able to attend both individual and group therapy sessions as well as meet with the psychiatrist daily and urged to discuss any medication or treatment issues or other concerns. The patient was educated primarily by verbal means about their diagnosis and manifestations in their life. The option for treatment including group and individual therapy programming was offered to the patient in addition to the use of medications with all their potential risks, benefits, and side effects as well as the risks of not taking medication and non-adhereance were discussed with the patient at length. The patient was given the opportunity to ask questions and was noted to participate in the treatment in the planning process. The patient felt ready and eager to be discharged from the inpatient psychiatric unit to continue on with treatment as an outpatient. The patient agreed that is they were safe for this disposition. The patient was considered to be able to participate in informed consent and decision making with respect to medical, legal, and financial issues of the time of discharge. At the time of discharge the patient adamantly denied any concerns for lethality including suicidal or homicidal thoughts ideations or plans and was future oriented toward ongoing mental health care, medical follow-up and sobriety. Time spent discussing smoking cessation with patient: 3 to 10 minutes Does patient wish to continue nicotine replacement upon disc: No - Time Spent with Patient Total time spent providing and/or coordinating discharge services:20 Less than 30 minutes Specific discharge activities: Interval history reviewed. Available labs reviewed . Psychotherapy provided. Patient had an opportunity to ask questions and address concerns. Patient was in agreement with the treatment plan. The risks benefits and side effects of medications were discussed with the patient, including alternatives and treatment. The patient was educated on the abstaining from any alcohol or illicit substances, following up with all scheduled appointments, and taking all medications as prescribed. Assessment and Plan - Patient/Caregiver Discharge Instructions Activity: resume usual activities as tolerated Diet: regular diet Additional Instructions: Continue current medications. Follow up with outpatient mental health. Encourage continued therapy in a group or individual setting. The patient was discharged to home. - Follow up Plan Follow up with: [facility] [Outside] - 08/08/19 8:40 am (You have an appointment scheduled for Thursday, August 08, 2019 at 8:[address] Deneen Jarvis M.D. for medication management. Please contact the office at least 24 hours in advance if you are unable to keep your appointment(s). ) Vipin Dinh [Partnered Physician] - (Please contact the office at the number above and follow up with your primary care provider as needed. Please keep your primary care provider informed of any changes in your medications or medical conditions. ) Functional capacity at discharge: independent ambulation Overall status at discharge: Stable Disposition: Home, Self-Care Quality - Multiple Antipsychotics Patient discharged on 2 or more antipsychotic medications: No Procedures - Procedures Procedures: Medication Management, Crisis Stabilization, Supportive Therapy, Group Therapy, Psychoeducational Therapy
[2019-08-04] MEDS ORDERED: FLU Vac QV 19-20 (6Month+)/PF 0.5 ML SYRINGE IM ONE (11:46)
== END 2019-08-04 12:15 | disposition home or self-care (01) | DRG 885 ==
LOC: EMEROOARM 10:51 → 1ANU 12:15 → SUATTDRO 12:15 → 1ANU 12:30
PROVIDERS: ADMIT Psychiatry & Neurology Psychiatry; ATTEND Psychiatry & Neurology Psychiatry

== ENCOUNTER 2019-11-25 09:07 | Observation (INO) ==
[2019-11-25] MEDS ORDERED: Aspirin 81 MG TAB.CHEW PO ONE (09:17)
[2019-11-25 09:55] LABS: Bilirubin,Urine Negative (Negative); Blood,Urine Negative (Negative); Clarity,Urine Clear (Clear); Color,Urine Yellow (Yellow); Glucose,Urine (UA) Normal (Normal); Ketones,Urine Negative (Negative); Leukocyte Esterase,Urine Negative (Negative); Nitrite,Urine Negative (Negative); PH,Urine 5.5 pH Units (5.0-8.0); Protein,Urine Negative (Neg-Trace); Specific Gravity,Urine > 1.030 (1.010-1.025); Urobilinogen,Urine Normal (Normal)
[2019-11-25 09:56] LABS: Basophils % 0.3 %; Eosinophils # 0.1 K/mcL (0.0-0.6); Eosinophils % 1.4 %; Hematocrit 40.9 % (35.3-44.9); Hemoglobin 14.2 g/dL (11.5-15.4); Immature Granulocytes % 0.6 % (0-4); Lymphocytes # 2.5 K/mcL (0.6-4.6); Mean Corpuscular HGB Conc 34.7 g/dL (31.6-35.5); Mean Corpuscular Hemoglobin 30.7 pg (28.0-33.3); Mean Corpuscular Volume 88.3 fL (83.0-100.0); Monocytes # 0.5 K/mcL (0.0-1.3); Monocytes % 7.4 %; Neutrophils # 3.8 K/mcL (1.6-8.9); Platelet Count 252 K/mcL (140-400); Red Blood Count 4.63 M/mcL (3.82-4.97); Red Cell Distribution Width 12.6 % (11.5-14.5); Segmented Neutrophils % 54.3 %; White Blood Count 7.1 K/mcL (4.3-11.1)
[2019-11-25 10:05] LABS: INR 0.9; Prothrombin Time 10.5 Seconds (9.4-12.1)
[2019-11-25 10:07] LABS: Activated Partial Thrombo Time 32.5 Seconds (26.0-36.0)
[2019-11-25 10:09] LABS: Amphetamine Screen,Urine Negative ng/mL (Cutoff=1000); Barbiturate Screen,Urine Negative ng/mL (Cutoff=200); Benzodiazepines Screen,Urine Positive ng/mL (Cutoff=200); Cannabinoid Screen,Urine Negative ng/mL (Cutoff = 50); Cocaine Screen,Urine Negative ng/mL (Cutoff= 300); Opiate Screen,Urine Negative ng/mL (Cutoff=300); Phencyclidine Screen,Urine Negative ng/mL (Cutoff=25)
[2019-11-25 10:23] LABS: BUN/Creatinine Ratio 27 (6-26); Blood Urea Nitrogen 16 mg/dL (6-20); Calcium 8.9 mg/dL (8.6-10.3); Carbon Dioxide 25 mEq/L (23-29); Chloride 105 mEq/L (98-107); Glucose 100 mg/dL (70-105); Osmolality,Calculated 287 (280-300); Potassium 4.2 mEq/L (3.5-5.1); Sodium 138 mEq/L (136-145); eGFR For African Americans > 60 (> 60); eGFR For Non-African Americans > 60 (> 60)
[2019-11-25 10:24] LABS: Troponin I < 0.03 ng/mL (< 0.04)
[2019-11-25] MEDS ORDERED: Isovue-370 500 ML BOTTLE IVP ONE (10:38)
[2019-11-25] MEDS: Nitroglycerin 0.4 MG TAB.SUBL SL SCH ×4 (11:06→19:43)
[2019-11-25] MEDS ORDERED: Naloxone 0.4 MG/ML INJ IVP PRN (13:02)
[2019-11-25] MEDS ORDERED: Ondansetron 4 MG/2 ML VIAL IVP PRN (13:02)
[2019-11-25] MEDS ORDERED: *HR* LORazepam 1 MG TABLET PO PRN (13:03)
[2019-11-25] MEDS ORDERED: hydrOXYzine pamoate 25 MG CAPSULE PO PRN (13:03)
[2019-11-25] MEDS ORDERED: Fluticasone Propionate Nasal 50 MCG/SPRAY BOTTLE NS PRN (13:03)
[2019-11-25] MEDS ORDERED: traZODone 50 MG TABLET PO PRN (13:03)
[2019-11-25] MEDS: Famotidine 20 MG TABLET PO SCH ×2 (17:05→18:39)
[2019-11-25] MEDS: *HR* Heparin 5,000 UNIT/ML VIAL SQ SCH (17:05)
[2019-11-25] MEDS: Pregabalin 50 MG CAPSULE PO SCH (19:39)
[2019-11-25] MEDS: amLODIPine 5 MG TABLET PO SCH (19:39)
[2019-11-25] MEDS: Temazepam 15 MG CAPSULE PO SCH (19:39)
[2019-11-25] MEDS: Baclofen 10 MG TABLET PO SCH (19:39)
[2019-11-25] MEDS: carBAMazepine 200 MG TABLET PO SCH (19:40)
[2019-11-25] MEDS: traZODone 50 MG TABLET PO SCH (19:40)
[2019-11-26 00:58] LABS: Basophils % 0.4 %; Eosinophils # 0.1 K/mcL (0.0-0.6); Eosinophils % 1.3 %; Hematocrit 38.2 % (35.3-44.9); Hemoglobin 13.1 g/dL (11.5-15.4); Immature Granulocytes % 0.4 % (0-4); Lymphocytes # 3.4 K/mcL (0.6-4.6); Lymphocytes % 43.1 %; Mean Corpuscular HGB Conc 34.3 g/dL (31.6-35.5); Mean Corpuscular Hemoglobin 30.5 pg (28.0-33.3); Mean Corpuscular Volume 88.8 fL (83.0-100.0); Mean Platelet Volume 10.1 fL (9.4-12.4); Monocytes # 0.6 K/mcL (0.0-1.3); Monocytes % 7.3 %; Neutrophils # 3.7 K/mcL (1.6-8.9); Platelet Count 242 K/mcL (140-400); Red Cell Distribution Width 12.7 % (11.5-14.5); Segmented Neutrophils % 47.5 %; White Blood Count 7.8 K/mcL (4.3-11.1)
[2019-11-26 01:16] LABS: BUN/Creatinine Ratio 27 (6-26); Blood Urea Nitrogen 14 mg/dL (6-20); Calcium 8.5 mg/dL (8.6-10.3); Carbon Dioxide 25 mEq/L (23-29); Chloride 106 mEq/L (98-107); Glucose 84 mg/dL (70-105); Magnesium 1.8 mg/dL (1.6-2.6); Osmolality,Calculated 284 (280-300); Phosphorous 3.3 mg/dL (2.7-4.5); Potassium 3.7 mEq/L (3.5-5.1); Sodium 137 mEq/L (136-145); eGFR For African Americans > 60 (> 60); eGFR For Non-African Americans > 60 (> 60)
[2019-11-26] MEDS: *HR* Heparin 5,000 UNIT/ML VIAL SQ SCH ×2 (05:22→16:58)
[2019-11-26] MEDS ORDERED: Regadenoson 0.4 MG/5 ML SYRINGE IVP ONE (06:26)
[2019-11-26] MEDS ORDERED: Lurasidone 20 MG TABLET PO SCH (09:00)
[2019-11-26] MEDS ORDERED: (Vilazodone Hcl [Viibryd] 40 MG) PO SCH (09:00)
[2019-11-26] MEDS ORDERED: NON-FORMULARY MEDICATION 1 EACH EACH (Magnesium 250 MG) PO SCH (09:00)
[2019-11-26] MEDS ORDERED: Perflutren Lipid Microsphere 1.3 ML in 0.9 % Sodium Chloride 8.7 ML IVP ONE (09:09)
[2019-11-26] MEDS: Loratadine 10 MG TABLET PO SCH (11:08)
[2019-11-26] MEDS: Baclofen 10 MG TABLET PO SCH ×2 (11:08→22:03)
[2019-11-26] MEDS: Famotidine 20 MG TABLET PO SCH ×2 (11:08→22:03)
[2019-11-26] MEDS: Pregabalin 50 MG CAPSULE PO SCH ×2 (11:08→22:03)
[2019-11-26] MEDS: carBAMazepine 200 MG TABLET PO SCH ×2 (11:08→22:03)
[2019-11-26] MEDS: traZODone 50 MG TABLET PO SCH (22:04)
[2019-11-26] MEDS: Temazepam 15 MG CAPSULE PO SCH (22:04)
[2019-11-26] MEDS: amLODIPine 5 MG TABLET PO SCH (22:04)
[2019-11-27] MEDS: *HR* Heparin 5,000 UNIT/ML VIAL SQ SCH (05:23)
[2019-11-27 06:54] LABS: BUN/Creatinine Ratio 24 (6-26); Blood Urea Nitrogen 17 mg/dL (6-20); Calcium 8.8 mg/dL (8.6-10.3); Carbon Dioxide 25 mEq/L (23-29); Chloride 101 mEq/L (98-107); Glucose 97 mg/dL (70-105); Osmolality,Calculated 285 (280-300); Phosphorous 3.8 mg/dL (2.7-4.5); Potassium 4.1 mEq/L (3.5-5.1); Sodium 137 mEq/L (136-145); eGFR For African Americans > 60 (> 60); eGFR For Non-African Americans > 60 (> 60)
[2019-11-27 08:52] VITALS: BP 120/85
[2019-11-27] MEDS ORDERED: 0.9 % Sodium Chloride 2,000 ML ONE (08:56)
[2019-11-27] MEDS ORDERED: Heparin 1,000 UNITS/500 mL 500 ML ONE (08:56)
[2019-11-27] MEDS ORDERED: *HR* Heparin 10,000 UNIT/10 ML VIAL ONE (08:56)
[2019-11-27] MEDS ORDERED: ISOVUE-370 200 ML INFUS..BTL ONE (08:56)
[2019-11-27] MEDS ORDERED: Nitroglycerin 1,000 MCG/10 ML VIAL IV ONE (08:56)
[2019-11-27] MEDS: Pregabalin 50 MG CAPSULE PO SCH (09:09)
[2019-11-27] MEDS: carBAMazepine 200 MG TABLET PO SCH (09:09)
[2019-11-27] MEDS: Famotidine 20 MG TABLET PO SCH (09:09)
[2019-11-27] MEDS: Loratadine 10 MG TABLET PO SCH (09:09)
[2019-11-27] MEDS: Baclofen 10 MG TABLET PO SCH (09:09)
[2019-11-27] MEDS ORDERED: *HR* FentaNYL (PF) 100 MCG/2 ML VIAL ONE (09:10)
[2019-11-27] MEDS ORDERED: *HR* Midazolam HCl 2 MG/2 ML VIAL ONE ×2 (09:10→09:50)
[2019-11-27] MEDS ORDERED: 0.9 % Sodium Chloride 1,000 ML IVC SCH (10:30)
[2019-11-28] MEDS ORDERED: Isosorbide MONOnitrate (24 HR) 30 MG TAB.ER.24H PO SCH (09:00)
== END 2019-11-27 14:48 | disposition home or self-care (01) ==
LOC: 3BNU 09:07 → EMEROOARM 09:07 → SUATTDRO 12:36 → 3BNU 13:21
PROVIDERS: ADMIT Student in an Organized Health Care Education/Training Program; ATTEND Internal Medicine

== ENCOUNTER 2019-12-24 17:08 | Observation (INO) ==
[2019-12-24] MEDS ORDERED: Morphine Sulfate Immed Rel 15 MG TABLET PO STA (17:26)
[2019-12-24 17:47] LABS: Basophils % 0.3 %; Eosinophils # 0.1 K/mcL (0.0-0.6); Eosinophils % 1.2 %; Hematocrit 37.5 % (35.3-44.9); Immature Granulocytes % 0.4 % (0-4); Lymphocytes # 3.2 K/mcL (0.6-4.6); Lymphocytes % 34.8 %; Mean Corpuscular HGB Conc 34.7 g/dL (31.6-35.5); Mean Corpuscular Hemoglobin 30.2 pg (28.0-33.3); Mean Corpuscular Volume 87.2 fL (83.0-100.0); Mean Platelet Volume 9.9 fL (9.4-12.4); Monocytes # 0.9 K/mcL (0.0-1.3); Monocytes % 9.5 %; Platelet Count 241 K/mcL (140-400); Red Cell Distribution Width 12.6 % (11.5-14.5); Segmented Neutrophils % 53.8 %; White Blood Count 9.2 K/mcL (4.3-11.1)
[2019-12-24 18:08] LABS: BUN/Creatinine Ratio 25 (6-26); Blood Urea Nitrogen 15 mg/dL (6-20); Calcium 8.9 mg/dL (8.6-10.3); Carbon Dioxide 24 mEq/L (23-29); Chloride 103 mEq/L (98-107); Glucose 89 mg/dL (70-105); Osmolality,Calculated 282 (280-300); Potassium 3.9 mEq/L (3.5-5.1); Sodium 136 mEq/L (136-145); Troponin I < 0.03 ng/mL (< 0.04); eGFR For African Americans > 60 (> 60); eGFR For Non-African Americans > 60 (> 60)
[2019-12-24] MEDS ORDERED: Nitroglycerin 0.4 MG TAB.SUBL SL STA (18:23)
[2019-12-24] MEDS ORDERED: Ondansetron ODT 4 MG TAB.RAPDIS SL ONE (18:23)
[2019-12-24] MEDS ORDERED: Ketorolac 15 MG/ML VIAL IVP ONE (18:46)
[2019-12-24] MEDS ORDERED: *HR* Promethazine 25 MG/ML VIAL IVP ONE (18:46)
[2019-12-24] MEDS ORDERED: Naloxone 0.4 MG/ML INJ IVP PRN (21:11)
[2019-12-24] MEDS ORDERED: Acetaminophen 325 MG TABLET PO PRN (21:11)
[2019-12-24] MEDS ORDERED: hydrOXYzine pamoate 25 MG CAPSULE PO PRN (21:13)
[2019-12-24] MEDS ORDERED: Fluticasone Propionate Nasal 50 MCG/SPRAY BOTTLE NS PRN (21:13)
[2019-12-24] MEDS: *HR* Heparin 5,000 UNIT/ML VIAL SQ SCH (21:54)
[2019-12-24] MEDS: Ketorolac 15 MG/ML VIAL IVP PRN (22:05)
[2019-12-24] MEDS: Ondansetron 4 MG/2 ML VIAL IVP PRN (22:05)
[2019-12-25] MEDS ORDERED: *HR* OxyCODONE/APAP 5/325 TABLET PO ONE (00:05)
[2019-12-25] MEDS: Nitroglycerin 0.4 MG TAB.SUBL SL PRN ×2 (00:34→00:41)
[2019-12-25 02:43] LABS: Prothrombin Time 11.8 Seconds (9.4-12.1)
[2019-12-25 02:44] LABS: Basophils % 0.3 %; Eosinophils # 0.1 K/mcL (0.0-0.6); Eosinophils % 1.3 %; Hematocrit 36.6 % (35.3-44.9); Hemoglobin 12.3 g/dL (11.5-15.4); Immature Granulocytes % 0.3 % (0-4); Lymphocytes # 3.4 K/mcL (0.6-4.6); Lymphocytes % 39.3 %; Mean Corpuscular HGB Conc 33.6 g/dL (31.6-35.5); Mean Corpuscular Hemoglobin 30.6 pg (28.0-33.3); Mean Platelet Volume 10.2 fL (9.4-12.4); Monocytes # 0.9 K/mcL (0.0-1.3); Monocytes % 10.7 %; Neutrophils # 4.2 K/mcL (1.6-8.9); Platelet Count 238 K/mcL (140-400); Red Blood Count 4.02 M/mcL (3.82-4.97); Red Cell Distribution Width 12.6 % (11.5-14.5); Segmented Neutrophils % 48.1 %; White Blood Count 8.6 K/mcL (4.3-11.1)
[2019-12-25 02:59] LABS: BUN/Creatinine Ratio 31 (6-26); Blood Urea Nitrogen 20 mg/dL (6-20); Calcium 8.7 mg/dL (8.6-10.3); Carbon Dioxide 24 mEq/L (23-29); Chloride 104 mEq/L (98-107); Glucose 122 mg/dL (70-105); Osmolality,Calculated 288 (280-300); Potassium 3.5 mEq/L (3.5-5.1); Sodium 137 mEq/L (136-145); eGFR For African Americans > 60 (> 60); eGFR For Non-African Americans > 60 (> 60)
[2019-12-25] MEDS: Ketorolac 15 MG/ML VIAL IVP PRN (04:08)
[2019-12-25] MEDS: *HR* Heparin 5,000 UNIT/ML VIAL SQ SCH ×3 (05:20→19:58)
[2019-12-25] MEDS: *HR* HYDROcodone/Acet 5/325 mg TABLET PO STA ×2 (05:30→05:41)
[2019-12-25] MEDS: Ondansetron 4 MG/2 ML VIAL IVP PRN (06:09)
[2019-12-25] MEDS: DilTIAZem CD (24hr) 300 MG CAP.ER.24H PO SCH (08:29)
[2019-12-25] MEDS: clonazePAM 1 MG TABLET PO SCH ×3 (08:29→19:58)
[2019-12-25] MEDS: Baclofen 10 MG TABLET PO SCH ×2 (08:29→19:58)
[2019-12-25] MEDS: Pregabalin 50 MG CAPSULE PO SCH ×2 (08:29→19:57)
[2019-12-25] MEDS: carBAMazepine 200 MG TABLET PO SCH ×2 (08:29→19:58)
[2019-12-25] MEDS: (Vilazodone Hcl [Viibryd] 40 MG) PO SCH (08:30)
[2019-12-25] MEDS ORDERED: Acetaminophen IV 500 MG/50 ML INFUS..BTL IVPB ONE (10:11)
[2019-12-25] MEDS: Ranolazine 500 MG TAB.ER.12H PO SCH ×2 (12:44→19:57)
[2019-12-25] MEDS: Isosorbide MONOnitrate (24 HR) 30 MG TAB.ER.24H PO SCH (12:44)
[2019-12-25] MEDS: Metoprolol XL (24 HR) Succ 25 MG TAB.ER.24H PO SCH (12:44)
[2019-12-25] MEDS ORDERED: Lidocaine -MPF 2% 2 ML VIAL ONE (14:49)
[2019-12-25] MEDS ORDERED: *HR* Propofol 200 MG/20 ML VIAL IVP ONE ×2 (14:49→14:58)
[2019-12-25] MEDS ORDERED: Temazepam 15 MG CAPSULE PO SCH (21:00)
[2019-12-25] MEDS ORDERED: Loratadine 10 MG TABLET PO SCH (21:00)
[2019-12-25] MEDS ORDERED: traZODone 50 MG TABLET PO SCH (21:00)
[2019-12-26] MEDS: *HR* Heparin 5,000 UNIT/ML VIAL SQ SCH (05:27)
[2019-12-26 07:35] VITALS: BP 99/63
[2019-12-26] MEDS: (Vilazodone Hcl [Viibryd] 40 MG) PO SCH (09:46)
[2019-12-26] MEDS: Metoprolol XL (24 HR) Succ 25 MG TAB.ER.24H PO SCH (09:46)
[2019-12-26] MEDS: Isosorbide MONOnitrate (24 HR) 30 MG TAB.ER.24H PO SCH (09:49)
[2019-12-26] MEDS: Baclofen 10 MG TABLET PO SCH (09:50)
[2019-12-26] MEDS: clonazePAM 1 MG TABLET PO SCH (09:50)
[2019-12-26] MEDS: Pregabalin 50 MG CAPSULE PO SCH (09:50)
[2019-12-26] MEDS: Ranolazine 500 MG TAB.ER.12H PO SCH (09:57)
[2019-12-26] MEDS: carBAMazepine 200 MG TABLET PO SCH (09:57)
[2019-12-26] MEDS: DilTIAZem CD (24hr) 300 MG CAP.ER.24H PO SCH (09:58)
== END 2019-12-26 12:04 | disposition home or self-care (01) ==
LOC: 3BNU 17:08 → EMEROOARM 17:08 → 3BNU 21:16
PROVIDERS: ADMIT Student in an Organized Health Care Education/Training Program; ATTEND Student in an Organized Health Care Education/Training Program

== ENCOUNTER 2020-11-10 12:39 | Observation (INO) ==
[2020-11-10 14:26] LABS: BUN/Creatinine Ratio 30 (6-26); Blood Urea Nitrogen 16 mg/dL (6-20); Carbon Dioxide 26 mEq/L (23-29); Chloride 102 mEq/L (98-107); Glucose 112 mg/dL (70-105); Osmolality,Calculated 288 (280-300); Potassium 3.7 mEq/L (3.5-5.1); Sodium 138 mEq/L (136-145); eGFR For African Americans > 60 (> 60); eGFR For Non-African Americans > 60 (> 60)
[2020-11-10 14:27] LABS: Troponin I < 0.03 ng/mL (< 0.04)
[2020-11-10 14:35] LABS: INR 0.9; Prothrombin Time 10.8 Seconds (9.4-12.1)
[2020-11-10 14:36] LABS: Activated Partial Thrombo Time 27.6 Seconds (26.0-36.0)
[2020-11-10 14:37] LABS: Basophils % 0.4 %; Eosinophils # 0.2 K/mcL (0.0-0.6); Eosinophils % 1.4 %; Hematocrit 37.3 % (35.3-44.9); Hemoglobin 12.2 g/dL (11.5-15.4); Immature Granulocytes % 0.8 % (0-4); Lymphocytes # 4.2 K/mcL (0.6-4.6); Lymphocytes % 37.8 %; Mean Corpuscular HGB Conc 32.7 g/dL (31.6-35.5); Mean Corpuscular Hemoglobin 29.3 pg (28.0-33.3); Mean Corpuscular Volume 89.7 fL (83.0-100.0); Mean Platelet Volume 9.4 fL (9.4-12.4); Monocytes # 0.9 K/mcL (0.0-1.3); Monocytes % 8.2 %; Neutrophils # 5.6 K/mcL (1.6-8.9); Platelet Count 245 K/mcL (140-400); Red Blood Count 4.16 M/mcL (3.82-4.97); Red Cell Distribution Width 13.2 % (11.5-14.5); Segmented Neutrophils % 51.4 %
[2020-11-10] MEDS ORDERED: Isovue-370 500 ML BOTTLE IVP ONE (15:07)
[2020-11-10 15:17] LABS: Alanine Aminotransferase 21 Units/L (7-52); Albumin 3.9 g/dL (3.5-5.7); Albumin/Globulin Ratio 1.3 (1.1-2.2); Alkaline Phosphatase 60 Units/L (34-104); Aspartate Amino Transferase 17 Units/L (13-39); Bilirubin,Indirect 0.2 mg/dL (0.0-1.0); Bilirubin,Total 0.2 mg/dL (0.3-1.0); C-Reactive Protein 12 mg/L (Less than 10); Globulin 3.1 g/dL (2.4-3.5); Lactate Dehydrogenase 176 Units/L (140-271); Magnesium 1.9 mg/dL (1.6-2.6); Phosphorous 3.6 mg/dL (2.7-4.5)
[2020-11-10 15:30] LABS: Ferritin 193 ng/mL (10-120)
[2020-11-10 15:34] LABS: Bilirubin,Urine Negative (Negative); Blood,Urine Negative (Negative); Clarity,Urine Clear (Clear); Color,Urine Yellow (Yellow); Glucose,Urine (UA) Normal (Normal); Ketones,Urine Negative (Negative); Leukocyte Esterase,Urine Negative (Negative); Nitrite,Urine Negative (Negative); PH,Urine 5.5 pH Units (5.0-8.0); Protein,Urine Trace mg/dL (Neg-Trace); Urobilinogen,Urine Normal (Normal)
[2020-11-10] MEDS ORDERED: Morphine Sulfate 2 MG/ML SYRINGE IVP STA (16:33)
[2020-11-10] MEDS ORDERED: Ondansetron ODT 4 MG TAB.RAPDIS SL PRN ×2 (19:25→20:45)
[2020-11-10] MEDS ORDERED: Naloxone 0.4 MG/ML INJ IVP PRN (19:25)
[2020-11-10 20:40] LABS: Adenovirus Not Detected (Not Detect); Bordetella Pertussis Not Detected (Not Detect); Chlamydophila pneumoniae Not Detected (Not Detect); Coronavirus 229E Not Detected (Not Detect); Coronavirus HKU1 Not Detected (Not Detect); Coronavirus NL63 Not Detected (Not Detect); Coronavirus OC43 Not Detected (Not Detect); Human Metapneumovirus Not Detected (Not Detect); Human Rhinovirus/Enterovirus Not Detected (Not Detect); Influenza A Subtype 2009 H1 Not Detected (Not Detect); Influenza B Not Detected (Not Detect); Mycoplasma pneumoniae Not Detected (Not Detect); Parainfluenza Virus 1 Not Detected (Not Detect); Parainfluenza Virus 2 Not Detected (Not Detect); Parainfluenza Virus 3 Not Detected (Not Detect); Parainfluenza Virus 4 Not Detected (Not Detect); Respiratory Syncytial Virus Not Detected (Not Detect); SARS-CoV-2 Not Detected (Not Detect)
[2020-11-10] MEDS ORDERED: Ipratropium/Albuterol Neb 3 ML IH PRN (20:45)
[2020-11-10] MEDS ORDERED: Fluticasone Propionate Nasal 50 MCG/SPRAY BOTTLE NS PRN (20:45)
[2020-11-10] MEDS ORDERED: Nitroglycerin 0.4 MG TAB.SUBL SL PRN (20:45)
[2020-11-10] MEDS ORDERED: Sennosides/Docusate Sodium TABLET PO PRN (20:45)
[2020-11-10] MEDS ORDERED: clonazePAM 1 MG TABLET PO PRN (20:45)
[2020-11-10] MEDS: Pregabalin 75 MG CAPSULE PO SCH (21:28)
[2020-11-10] MEDS: Loratadine 10 MG TABLET PO SCH (21:28)
[2020-11-10] MEDS: clonazePAM 0.5 MG TABLET PO SCH (21:29)
[2020-11-10] MEDS: carBAMazepine 200 MG TABLET PO SCH (21:29)
[2020-11-10] MEDS: MethylPREDNISolone 40 MG/ML VIAL IVP SCH (21:29)
[2020-11-10 21:49] LABS: VBG HCO3 26 mEq/L (21-27); VBG PCO2 37 mmHg (41-51); VBG PH 7.45 pH Units (7.32-7.42); VBG PO2 246 mmHg (25-50)
[2020-11-10] MEDS: Baclofen 10 MG TABLET PO SCH (22:35)
[2020-11-10] MEDS: traZODone 50 MG TABLET PO PRN (22:35)
[2020-11-10] MEDS: hydrOXYzine pamoate 25 MG CAPSULE PO PRN (22:35)
[2020-11-11] MEDS ORDERED: Morphine Sulfate 2 MG/ML SYRINGE IVP ONE (00:21)
[2020-11-11 02:58] LABS: Basophils % 0.4 %; Eosinophils % 0.1 %; Hemoglobin 12.1 g/dL (11.5-15.4); Immature Granulocytes % 1.1 % (0-4); Lymphocytes # 1.3 K/mcL (0.6-4.6); Lymphocytes % 17.9 %; Mean Corpuscular HGB Conc 33.6 g/dL (31.6-35.5); Mean Corpuscular Hemoglobin 30.6 pg (28.0-33.3); Mean Corpuscular Volume 91.1 fL (83.0-100.0); Mean Platelet Volume 9.5 fL (9.4-12.4); Monocytes # 0.2 K/mcL (0.0-1.3); Monocytes % 2.1 %; Neutrophils # 5.7 K/mcL (1.6-8.9); Platelet Count 210 K/mcL (140-400); Red Blood Count 3.95 M/mcL (3.82-4.97); Red Cell Distribution Width 13.5 % (11.5-14.5); Segmented Neutrophils % 78.4 %; White Blood Count 7.3 K/mcL (4.3-11.1)
[2020-11-11 03:20] LABS: BUN/Creatinine Ratio 31 (6-26); Blood Urea Nitrogen 16 mg/dL (6-20); Calcium 8.9 mg/dL (8.6-10.3); Carbon Dioxide 26 mEq/L (23-29); Chloride 102 mEq/L (98-107); Glucose 132 mg/dL (70-105); Osmolality,Calculated 285 (280-300); Potassium 4.3 mEq/L (3.5-5.1); Sodium 136 mEq/L (136-145); eGFR For African Americans > 60 (> 60); eGFR For Non-African Americans > 60 (> 60)
[2020-11-11] MEDS: Ipratropium/Albuterol Neb 3 ML IH SCH ×4 (03:59→22:44)
[2020-11-11] MEDS ORDERED: *HR* Heparin 5,000 UNIT/ML VIAL SQ SCH (06:00)
[2020-11-11] MEDS: Baclofen 10 MG TABLET PO SCH ×3 (06:26→19:55)
[2020-11-11] MEDS: MethylPREDNISolone 40 MG/ML VIAL IVP SCH (07:29)
[2020-11-11] MEDS: *HR* OxyCODONE/APAP 5/325 TABLET PO PRN ×2 (07:30→15:38)
[2020-11-11] MEDS: Aspirin 81 MG TAB.CHEW PO SCH (07:30)
[2020-11-11] MEDS: carBAMazepine 200 MG TABLET PO SCH ×2 (07:30→19:55)
[2020-11-11] MEDS: Pregabalin 75 MG CAPSULE PO SCH ×2 (07:30→19:54)
[2020-11-11] MEDS: (Vilazodone Hcl [Viibryd] 40 MG) PO SCH (07:31)
[2020-11-11] MEDS ORDERED: Perflutren Lipid Microsphere 1.3 ML in 0.9 % Sodium Chloride 8.7 ML IVP PRN (08:49)
[2020-11-11] MEDS ORDERED: clonazePAM 1 MG TABLET PO PRN (09:00)
[2020-11-11] MEDS ORDERED: Pantoprazole 40 MG VIAL IVP SCH (09:00)
[2020-11-11] MEDS: Dexamethasone 4 MG/ML VIAL IVP SCH (11:00)
[2020-11-11] MEDS: Metoprolol XL (24 HR) Succ 25 MG TAB.ER.24H PO SCH (11:01)
[2020-11-11] MEDS: hydrOXYzine pamoate 25 MG CAPSULE PO PRN (12:11)
[2020-11-11] MEDS ORDERED: Ketorolac 30 MG/ML VIAL IM ONE (17:01)
[2020-11-11] MEDS ORDERED: *HR* Metoprolol 5 MG/5 ML VIAL IVP PRN (17:39)
[2020-11-11] MEDS: Pantoprazole 40 MG VIAL IVP SCH (19:52)
[2020-11-11] MEDS: Loratadine 10 MG TABLET PO SCH (19:53)
[2020-11-11] MEDS: clonazePAM 0.5 MG TABLET PO SCH (19:54)
[2020-11-11] MEDS ORDERED: Temazepam 15 MG CAPSULE PO SCH (21:00)
[2020-11-11] MEDS: traZODone 50 MG TABLET PO PRN (22:28)
[2020-11-11] MEDS: Ranolazine 500 MG TAB.ER.12H PO SCH (22:28)
[2020-11-11] MEDS: Morphine Sulfate 2 MG/ML SYRINGE IVP PRN (22:29)
[2020-11-12] MEDS: Ipratropium/Albuterol Neb 3 ML IH SCH ×2 (03:45→10:46)
[2020-11-12] MEDS: Baclofen 10 MG TABLET PO SCH (03:50)
[2020-11-12 05:32] LABS: Basophils % 0.3 %; Eosinophils % 0.3 %; Hematocrit 34.5 % (35.3-44.9); Hemoglobin 11.4 g/dL (11.5-15.4); Immature Granulocytes % 0.9 % (0-4); Lymphocytes # 3.8 K/mcL (0.6-4.6); Lymphocytes % 38.5 %; Mean Corpuscular Hemoglobin 30.1 pg (28.0-33.3); Mean Platelet Volume 9.4 fL (9.4-12.4); Monocytes # 0.8 K/mcL (0.0-1.3); Monocytes % 7.6 %; Neutrophils # 5.2 K/mcL (1.6-8.9); Platelet Count 207 K/mcL (140-400); Red Blood Count 3.79 M/mcL (3.82-4.97); Red Cell Distribution Width 13.6 % (11.5-14.5); Segmented Neutrophils % 52.4 %; White Blood Count 9.9 K/mcL (4.3-11.1)
[2020-11-12 05:51] LABS: BUN/Creatinine Ratio 39 (6-26); Blood Urea Nitrogen 17 mg/dL (6-20); Calcium 9.2 mg/dL (8.6-10.3); Carbon Dioxide 23 mEq/L (23-29); Chloride 102 mEq/L (98-107); Glucose 111 mg/dL (70-105); Magnesium 1.9 mg/dL (1.6-2.6); Osmolality,Calculated 286 (280-300); Potassium 3.8 mEq/L (3.5-5.1); Sodium 137 mEq/L (136-145); eGFR For African Americans > 60 (> 60); eGFR For Non-African Americans > 60 (> 60)
[2020-11-12] MEDS: Morphine Sulfate 2 MG/ML SYRINGE IVP PRN (06:10)
[2020-11-12] MEDS ORDERED: *HR* Enoxaparin 40 MG/0.4 ML SYRINGE SQ SCH (07:00)
[2020-11-12] MEDS: (Vilazodone Hcl [Viibryd] 40 MG) PO SCH (08:58)
[2020-11-12] MEDS: Aspirin 81 MG TAB.CHEW PO SCH (08:59)
[2020-11-12] MEDS: Ranolazine 500 MG TAB.ER.12H PO SCH (08:59)
[2020-11-12] MEDS: Metoprolol XL (24 HR) Succ 25 MG TAB.ER.24H PO SCH (08:59)
[2020-11-12] MEDS: Dexamethasone 4 MG/ML VIAL IVP SCH (08:59)
[2020-11-12] MEDS: Pregabalin 75 MG CAPSULE PO SCH (08:59)
[2020-11-12] MEDS: Pantoprazole 40 MG VIAL IVP SCH (08:59)
[2020-11-12] MEDS: carBAMazepine 200 MG TABLET PO SCH (08:59)
[2020-11-12 10:52] VITALS: BP 126/72
== END 2020-11-12 12:13 | disposition home or self-care (01) ==
LOC: EMEROOARM 12:39 → 2NENU 12:39 → SUATTDRO 18:17 → 2NENU 18:21 → CDU 20:46
PROVIDERS: ADMIT Internal Medicine; ATTEND Pharmacist